=== PATIENT | female | born 1940 | race Caucasian/White ===

== ENCOUNTER 2018-03-10 18:15 | Emergency (ER) | payer MEDICARE, BC ==
[~2018-03-10 18:15] MED LIST: SUCCINYLCHOLINE CHLORIDE INJ 200 MG/10 ML VIAL ONE
--- NOTE | 2018-03-10 18:22 | ER Document Report ---
ED General - General Stated Complaint: VOMITING Time Seen by Provider: 03/10/18 18:22 Notes: Patient presents via ambulance for evaluation of not feeling well. States she has been vomiting all day. Was having some tingling to her hands and feet. Tingling to the face. Patient is accompanied by her ex-. Ex- states that their daughter called him and stated that mom was acting differently and was vomiting a lot at home. Patient denied any chest pain. States that she has vomited several times has some crampy abdominal pain but otherwise denies any other symptoms other than nausea, vomiting and not feeling right. - HPI Onset: This morning Onset/Duration: Gradual Severity: Moderate Pain Level: 2 Associated symptoms: Nausea, Vomiting, Weakness Exacerbated by: Denies - Related Data Allergies/Adverse Reactions: No Known Allergies Allergy (Unverified 03/10/18 21:34) Past Medical History - General Information source: Patient - Social History Smoking Status: Never Smoker Cigarette use (# per day): No Frequency of alcohol use: None Drug Abuse: None Lives with: Alone Family History: Reviewed & Not Pertinent - Medical History Medical History: Other Notes: Hypertension, osteoarthritis Surgical history: Hysterectomy Review of Systems - Review of Systems Constitutional: Malaise, Weakness. denies: Fever EENT: denies: Eye pain, Eye discharge, Blurred vision, Difficulty swallowing, Mouth pain Cardiovascular: denies: Chest pain, Palpitations, Heart racing Respiratory: denies: Cough, Hurts to breathe, Short of breath, Wheezing Gastrointestinal: Nausea, Vomiting, Poor fluid intake. denies: Abdominal pain, Diarrhea Genitourinary: denies: Burning, Dysuria, Discharge Musculoskeletal: denies: Back pain, Gout, Joint pain Skin: denies: Change in color, Dryness, Lesions, Lumps, Rash Hematologic/Lymphatic: denies: Anemia, Blood clots, Easy bleeding, Easy bruising Neurological/Psychological: Weakness, Numbness, Tingling. denies: Seizure, Lost consciousness, Headaches Physical Exam - Vital signs Vitals: Temp Pulse Resp BP Pulse Ox 97.7 F 61 25 H 140/89 H 97 03/10/18 18:45 03/10/18 18:45 03/10/18 18:45 03/10/18 18:45 03/10/18 18:45 Interpretation: Normal - General General appearance: Appears well, Alert - HEENT Head: Normocephalic, Atraumatic Eyes: Normal Pupils: PERRL - Respiratory Respiratory status: No respiratory distress Chest status: Nontender Breath sounds: Normal Chest palpation: Normal - Cardiovascular Rhythm: Regular Heart sounds: Normal auscultation Murmur: No - Abdominal Inspection: Normal Distension: No distension Bowel sounds: Normal Tenderness: Nontender Organomegaly: No organomegaly - Back Back: Normal, Nontender - Extremities General upper extremity: Normal inspection, Nontender, Normal color, Normal ROM , Normal temperature General lower extremity: Normal inspection, Nontender, Normal color, Normal ROM , Normal temperature, Normal weight bearing. No: Carley's sign - Neurological Neuro grossly intact: Yes Cognition: Normal Orientation: AAOx4 [place] Coma Scale Eye Opening: Spontaneous Quique Coma Scale Verbal: Oriented Quique Coma Scale Motor: Obeys Commands Quique Coma Scale Total: 15 Speech: Normal Motor strength normal: LUE, RUE, LLE, RLE Sensory: Normal - Psychological Associated symptoms: Normal affect, Normal mood - Skin Skin Temperature: Warm Skin Moisture: Dry Skin Color: Normal Course - Re-evaluation Re-evalutation: 03/10/18 19:59 Patient was evaluated. Was a and O 4, no acute distress. After leaving the room orders were placed. Was called immediately to go back in the room about 30 minutes later. Patient was unresponsive. Patient was moved immediately to trauma 2. Had a pulse. Was breathing but appeared to be having a seizure. Spontaneously resolved. Patient was noted at that time to have a sodium level of 116. Hypertonic saline was ordered. Patient was intubated. Please see note below. 03/10/18 21:00 Patient intubated. No complications. Repeat sodium performed. Repeat sodium after 1 L of saline still shows hyponatremia at 118. Proceeding with hypertonic and fentanyl given. Increasing sedation. Attempting to transfer at this time. Waiting on read from CT. 03/10/18 21:13 Patient has been accepted at [facility] to the medical intensive care unit. This is a higher level of care and will have multispecialty care there in which we do not have here. I did discuss the case with the hospitalist who did recommend her transfer at this time. is accepting at [facility] 03/10/18 21:14 Laboratory 03/10/18 03/10/1818 18:30 18:30 18:30 WBC 20.1 H RBC 3.67 L Hgb 12.7 Hct 37.0 MCV 101 H MCH 34.5 H MCHC 34.2 RDW 15.3 H Plt Count 313 Total Counted 100 Seg Neutrophils % Not Reportable Seg Neuts % (Manual) 75 Band Neutrophils % 2 L Lymphocytes % Not Reportable Lymphocytes % (Manual) 15 Monocytes % Not Reportable Monocytes % (Manual) 8 Eosinophils % Not Reportable Eosinophils % (Manual) 0 Basophils % Not Reportable Basophils % (Manual) 0 Absolute Neutrophils Not Reportable Abs Neuts (Manual) 15.5 H Absolute Lymphocytes Not Reportable Abs Lymphs (Manual) 3.0 Absolute Monocytes Not Reportable Abs Monocytes (Manual) 1.6 H Absolute Eosinophils Not Reportable Absolute Eos (Manual) 0.0 Absolute Basophils Not Reportable Abs Basophils (Manual) 0.0 Toxic Granulation SLIGHT Platelet Comment ADEQUATE Anisocytosis SLIGHT Carbonic Acid HCO3/H2CO3 Ratio ABG pH ABG pCO2 ABG pO2 ABG HCO3 ABG Total CO2 ABG O2 Saturation ABG Base Excess FiO2 Sodium 116.5 L* Potassium 4.5 Chloride 84 L Carbon Dioxide 22 Anion Gap 11 BUN 20 Creatinine 0.75 Est GFR ( Amer) > 60 Est GFR (Non-Af Amer) > 60 Glucose 113 H Lactic Acid 1.6 Calcium 9.2 Magnesium 1.5 L Total Bilirubin 0.9 Direct Bilirubin 0.3 Neonat Total Bilirubin Not Reportable Neonat Direct Bilirubin Not Reportable Neonat Indirect Bili Not Reportable AST 45 H ALT 19 Alkaline Phosphatase 70 Creatine Kinase 211 H CK-MB (CK-2) Troponin I Total Protein 6.5 Albumin 4.1 Urine Color Urine Appearance Urine pH Ur Specific [place] Urine Protein Urine Glucose (UA) Urine Ketones Urine Blood Urine Nitrite Urine Bilirubin Urine Urobilinogen Ur Leukocyte Esterase Urine WBC (Auto) Urine RBC (Auto) Squamous Epi Cells Auto Urine Mucus (Auto) Urine Ascorbic Acid 03/10/18 03/10/18 03/10/18 18:30 19:40 19:55 WBC RBC Hgb Hct MCV MCH MCHC RDW Plt Count Total Counted Seg Neutrophils % Seg Neuts % (Manual) Band Neutrophils % Lymphocytes % Lymphocytes % (Manual) Monocytes % Monocytes % (Manual) Eosinophils % Eosinophils % (Manual) Basophils % Basophils % (Manual) Absolute Neutrophils Abs Neuts (Manual) Absolute Lymphocytes Abs Lymphs (Manual) Absolute Monocytes Abs Monocytes (Manual) Absolute Eosinophils Absolute Eos (Manual) Absolute Basophils Abs Basophils (Manual) Toxic Granulation Platelet Comment Anisocytosis Carbonic Acid HCO3/H2CO3 Ratio ABG pH ABG pCO2 ABG pO2 ABG HCO3 ABG Total CO2 ABG O2 Saturation ABG Base Excess FiO2 Sodium 118.2 L* Potassium Chloride Carbon Dioxide Anion Gap BUN Creatinine Est GFR ( Amer) Est GFR (Non-Af Amer) Glucose Lactic Acid Calcium Magnesium Total Bilirubin Direct Bilirubin Neonat Total Bilirubin Neonat Direct Bilirubin Neonat Indirect Bili AST ALT Alkaline Phosphatase Creatine Kinase CK-MB (CK-2) 7.68 H Troponin I < 0.012 Total Protein Albumin Urine Color YELLOW Urine Appearance CLEAR Urine pH 7.0 Ur Specific [place] 1.014 Urine Protein NEGATIVE Urine Glucose (UA) 50 H Urine Ketones TRACE H Urine Blood NEGATIVE Urine Nitrite NEGATIVE Urine Bilirubin NEGATIVE Urine Urobilinogen NEGATIVE Ur Leukocyte Esterase NEGATIVE Urine WBC (Auto) 1 Urine RBC (Auto) 3 Squamous Epi Cells Auto <1 Urine Mucus (Auto) RARE Urine Ascorbic Acid 20 H 03/10/18 19:55 WBC RBC Hgb Hct MCV MCH MCHC RDW Plt Count Total Counted Seg Neutrophils % Seg Neuts % (Manual) Band Neutrophils % Lymphocytes % Lymphocytes % (Manual) Monocytes % Monocytes % (Manual) Eosinophils % Eosinophils % (Manual) Basophils % Basophils % (Manual) Absolute Neutrophils Abs Neuts (Manual) Absolute Lymphocytes Abs Lymphs (Manual) Absolute Monocytes Abs Monocytes (Manual) Absolute Eosinophils Absolute Eos (Manual) Absolute Basophils Abs Basophils (Manual) Toxic Granulation Platelet Comment Anisocytosis Carbonic Acid 0.82 L HCO3/H2CO3 Ratio 19:1 ABG pH 7.38 ABG pCO2 27.1 L ABG pO2 394.6 H ABG HCO3 15.7 L ABG Total CO2 16.5 L ABG O2 Saturation 99.8 H ABG Base Excess -8.1 FiO2 100% Sodium Potassium Chloride Carbon Dioxide Anion Gap BUN Creatinine Est GFR ( Amer) Est GFR (Non-Af Amer) Glucose Lactic Acid Calcium Magnesium Total Bilirubin Direct Bilirubin Neonat Total Bilirubin Neonat Direct Bilirubin Neonat Indirect Bili AST ALT Alkaline Phosphatase Creatine Kinase CK-MB (CK-2) Troponin I Total Protein Albumin Urine Color Urine Appearance Urine pH Ur Specific [place] Urine Protein Urine Glucose (UA) Urine Ketones Urine Blood Urine Nitrite Urine Bilirubin Urine Urobilinogen Ur Leukocyte Esterase Urine WBC (Auto) Urine RBC (Auto) Squamous Epi Cells Auto Urine Mucus (Auto) Urine Ascorbic Acid Chest X-Ray 03/10/18 19:00 IMPRESSION: No acute cardiopulmonary disease. Tube placement as described. Head CT 03/10/18 19:00 IMPRESSION: MILD CHRONIC MICROVASCULAR ISCHEMIA. NO ACUTE IMAGING FINDINGS IN THE BRAIN. EVIDENCE OF ACUTE STROKE: NO. 03/10/18 21:28 Patient remained stable on the vent. At this time stable for transport. Awaiting transport at this time. 03/10/18 22:00 now bucking the vent a little bit. Going up on sedation at this time. Second dose for now given. Patient remained stable for transport. - Vital Signs Vital signs: Temp Pulse Resp BP Pulse Ox 64.2 F L 61 14 124/72 100 03/10/18 19:17 03/10/18 18:45 03/10/18 21:34 03/10/18 21:34 03/10/18 21:34 - Laboratory Result Diagrams: 03/10/18 18:30 03/10/18 19:55 Laboratory results interpreted by me: 03/10/18 03/10/18 03/10/18 18:30 18:30 18:30 WBC 20.1 H RBC 3.67 L MCV 101 H MCH 34.5 H RDW 15.3 H Band Neutrophils % 2 L Abs Neuts (Manual) 15.5 H Abs Monocytes (Manual) 1.6 H Carbonic Acid ABG pCO2 ABG pO2 ABG HCO3 ABG Total CO2 ABG O2 Saturation Sodium 116.5 L* Chloride 84 L Glucose 113 H Magnesium 1.5 L AST 45 H Creatine Kinase 211 H CK-MB (CK-2) 7.68 H Urine Glucose (UA) Urine Ketones Urine Ascorbic Acid 03/10/18 03/10/18 03/10/18 19:40 19:55 19:55 WBC RBC MCV MCH RDW Band Neutrophils % Abs Neuts (Manual) Abs Monocytes (Manual) Carbonic Acid 0.82 L ABG pCO2 27.1 L ABG pO2 394.6 H ABG HCO3 15.7 L ABG Total CO2 16.5 L ABG O2 Saturation 99.8 H Sodium 118.2 L* Chloride Glucose Magnesium AST Creatine Kinase CK-MB (CK-2) Urine Glucose (UA) 50 H Urine Ketones TRACE H Urine Ascorbic Acid 20 H - EKG Interpretation by Sd EKG shows normal: Sinus rhythm, [place], Intervals, QRS Complexes, ST-T Waves Procedures - Intubation Orotracheal Airway evaluation: Normal anatomy Mallampati Classification: Class 2 Medications: Etomidate, Succinylcholine, Diprivan, Vecuronium Intubation method: Orotracheal Blade type: Casandra Blade size: 3 Equipment used: Glidescope ETT size: 7.5 ETT secured at: Teeth ETT secured at (cm): 22 Breath Sounds after Intubation: Equal End tidal CO2 confirmed: Yes Ventilator settings: SIMV Post Intubation Xray: Yes Intubation Complications: No complications Critical Care Note - Critical Care Note Total time excluding time spent on procedures (mins): 90 Comments: Coma, airway protection, blood pressure management, neurological compromise, electrolyte abnormalities, consultation with specialists Discharge - Discharge Clinical Impression: Acute hyponatremia, Seizure Condition: Critical Disposition: [facility] Referrals: MARINA ALVAREZ DO [Primary Care Provider] - Follow up as needed
[2018-03-10] MEDS ORDERED: NORMAL SALINE 1000 ML 1,000 ML IV ONE (18:36)
[2018-03-10 18:44] LABS: HEMOGLOBIN 12.7 g/dL (12.0-15.5); MEAN CORPUSCULAR HEMOGLOBIN 34.5 pg (27.0-33.4); MEAN CORPUSCULAR HGB CONC 34.2 g/dL (32.0-36.0); MEAN CORPUSCULAR VOLUME 101 fl (80-97); PLATELET COUNT 313 10^3/uL (150-450); RED BLOOD COUNT 3.67 10^6/uL (3.72-5.28); RED CELL DISTRIBUTION WIDTH 15.3 % (11.5-14.0); WHITE BLOOD COUNT 20.1 10^3/uL (4.0-10.5)
[2018-03-10] MEDS ORDERED: LORAZEPAM INJ 2 MG/1 ML VIAL ONE (18:56)
[2018-03-10 18:58] LABS: ALANINE AMINOTRANSFERASE 19 U/L (9-52); ALBUMIN 4.1 g/dL (3.5-5.0); ALKALINE PHOSPHATASE 70 U/L (38-126); ANION GAP 11 (5-19); ASPARTATE AMINO TRANSFERASE 45 U/L (14-36); BILIRUBIN,DIRECT 0.3 mg/dL (0.0-0.4); BILIRUBIN,TOTAL 0.9 mg/dL (0.2-1.3); BLOOD UREA NITROGEN 20 mg/dL (7-20); CALCIUM 9.2 mg/dL (8.4-10.2); CARBON DIOXIDE 22 mmol/L (22-30); CHLORIDE 84 mmol/L (98-107); CREATINE KINASE 211 U/L (30-135); GLUCOSE 113 mg/dL (75-110); POTASSIUM 4.5 mmol/L (3.6-5.0); TOTAL PROTEIN 6.5 g/dL (6.3-8.2)
[2018-03-10 19:00] LABS: ABSOLUTE MONOCYTES # (MANUAL) 1.6 10^3/uL (0.1-1.4); ABSOLUTE NEUTROPHILS# (MANUAL) 15.5 10^3/uL (1.7-8.2); BAND NEUTROPHILS % (MANUAL) 2 % (3-5); BASOPHILS % (MANUAL) 0 % (0-2); EOSINOPHILS % (MANUAL) 0 % (0-6); LYMPHOCYTES % (MANUAL) 15 % (13-45); MONOCYTES % (MANUAL) 8 % (3-13); SEGMENTED NEUTROPHILS % (MAN) 75 % (42-78); TOTAL CELLS COUNTED 100
[2018-03-10 19:01] LABS: ANISOCYTOSIS SLIGHT; PLATELET COMMENT ADEQUATE; TOXIC GRANULATION SLIGHT
[2018-03-10 19:03] LABS: SODIUM 116.5 mmol/L (137-145)
[2018-03-10] MEDS ORDERED: ETOMIDATE INJ/PF 20 MG/10 ML SDV IV ONE (19:08)
[2018-03-10 19:09] LABS: CREATINE KINASE MB 7.68 ng/mL (<4.55)
[2018-03-10] MEDS ORDERED: SODIUM CHLORIDE 3% 500 ML IV ONE ×2 (19:11→20:55)
[2018-03-10 19:13] LABS: TROPONIN I < 0.012 ng/mL
[2018-03-10] MEDS ORDERED: PROPOFOL 100 ML IV ONE (19:14)
[2018-03-10] MEDS ORDERED: VECURONIUM BROMIDE INJ 10 MG VIAL IV ONE ×2 (19:31→21:48)
[2018-03-10 20:01] LABS: APPEARANCE,URINE CLEAR; BILIRUBIN,URINE NEGATIVE (NEGATIVE); COLOR,URINE YELLOW; GLUCOSE, URINE 50 mg/dL (NEGATIVE); KETONES,URINE TRACE mg/dL (NEGATIVE); LEUKOCYTE ESTERASE,URINE NEGATIVE (NEGATIVE); NITRITE,URINE NEGATIVE (NEGATIVE); PROTEIN,URINE NEGATIVE (NEGATIVE); URINE SPECIFIC GRAVITY 1.014; UROBILINOGEN,URINE NEGATIVE mg/dL (<2.0)
[2018-03-10 20:13] LABS: ARTERIAL BLOOD BASE EXCESS -8.1 mmol/L; ARTERIAL BLOOD H2CO3 0.82 mmol/L (1.05-1.35); ARTERIAL BLOOD HCO3 15.7 mmol/L (20-26); ARTERIAL BLOOD O2 SATURATION 99.8 % (94-98); ARTERIAL BLOOD PCO2 27.1 mmHg (35-45); ARTERIAL BLOOD PH 7.38 (7.35-7.45); ARTERIAL BLOOD PO2 394.6 mmHg (80-100); ARTERIAL BLOOD TOTAL CO2 16.5 mmol/L (21-25)
--- NOTE | 2018-03-10 20:13 | RADIOLOGY REPORT (SQ) ---
EXAM DESCRIPTION: CHEST SINGLE VIEW COMPLETED DATE/TIME: 03/10/2018 8:03 pm REASON FOR STUDY: sob/ NG/ETT PLACEMENT COMPARISON: None. EXAM PARAMETERS: NUMBER OF VIEWS: One view. TECHNIQUE: Single frontal radiographic view of the chest acquired. RADIATION DOSE: NA LIMITATIONS: None. FINDINGS: LUNGS AND PLEURA: No infiltrate or effusion. No mass. MEDIASTINUM AND HILAR STRUCTURES: No masses. Contour normal. HEART AND VASCULAR STRUCTURES: Heart normal in size. Normal vasculature. BONES: No acute findings. HARDWARE: An endotracheal tube has its tip 5 cm above the kylee. An NG tube extends to the stomach. OTHER: No other significant finding. IMPRESSION: No acute cardiopulmonary disease. Tube placement as described. TECHNICAL DOCUMENTATION: JOB ID: [id number] [employer]- All Rights Reserved Reading location - IP/workstation name: [email or web address]
[2018-03-10 20:14] LABS: ARTERIAL BLOOD FIO2 100%
[2018-03-10] MEDS ORDERED: SUCCINYLCHOLINE CHLORIDE INJ 200 MG/10 ML VIAL IV ONE (20:38)
[2018-03-10] MEDS ORDERED: FENTANYL CITRATE INJ/PF 100 MCG/2 ML AMPUL IV ONE ×2 (21:00→21:47)
--- NOTE | 2018-03-10 21:00 | RADIOLOGY REPORT (SQ) ---
EXAM DESCRIPTION: CT HEAD WITHOUT COMPLETED DATE/TIME: 03/10/2018 8:23 pm REASON FOR STUDY: altered mental status COMPARISON: None. TECHNIQUE: Axial images acquired through the brain without intravenous contrast. Images reviewed wi th bone, brain and subdural windows. Additional sagittal and coronal reconstructions were generated. Images stored on PACS. All CT scanners at this facility use dose modulation, iterative reconstruction, and/or weight based d osing when appropriate to reduce radiation dose to as low as reasonably achievable (ALARA). [facility]: Dose Right [facility]: CareDose [facility]: Dose Right [facility]: Teradose 4D [facility]: Smart Synack RADIATION DOSE: CT Rad equipment meets quality standard of care and radiation dose reduction techniq ues were employed. CTDIvol: 53.2 mGy. DLP: 1017 mGy-cm. mGy. LIMITATIONS: None. FINDINGS: VENTRICLES: Normal size and contour. CEREBRUM: No masses. No hemorrhage. No midline shift. No evidence for acute infarction. Few scatte red areas of low density in the white matter most likely chronic small vessel ischemic changes. CEREBELLUM: No masses. No hemorrhage. No alteration of density. No evidence for acute infarction. EXTRAAXIAL SPACES: No fluid collections. No masses. ORBITS AND GLOBE: No intra- or extraconal masses. Normal contour of globe without masses. CALVARIUM: No fracture. PARANASAL SINUSES: No fluid or mucosal thickening. SOFT TISSUES: No mass or hematoma. OTHER: An endotracheal tube is present. IMPRESSION: MILD CHRONIC MICROVASCULAR ISCHEMIA. NO ACUTE IMAGING FINDINGS IN THE BRAIN. EVIDENCE OF ACUTE STROKE: NO. COMMENT: Quality ID # [id number]: Final reports with documentation of one or more dose reduction techniques (e.g., Automated exposure control, adjustment of the mA and/or kV according to patient size, use of iterative reconstruction technique) TECHNICAL DOCUMENTATION: JOB ID: [id number] [employer]- All Rights Reserved Reading location - IP/workstation name: [email or web address]
--- NOTE | 2018-03-10 22:32 | EKG REPORT ---
SEVERITY:- ABNORMAL ECG - SINUS RHYTHM ATRIAL PREMATURE COMPLEX ABNRM R PROG, CONSIDER ASMI OR LEAD PLACEMENT CONSIDER INFERIOR AL AGE OLD : Confirmed by: Mani Spencer 10-Mar-2018 22:31:56
[2018-03-10 22:33] VITALS: BP 94/58
== END 2018-03-10 22:50 | disposition short-term general hospital (02) ==
LOC: ER 18:15
DX: E87.1 Hypo-osmolality and hyponatremia (principal); R56.9 Unspecified convulsions; R11.2 Nausea with vomiting, unspecified; R20.2 Paresthesia of skin; R53.1 Weakness; R53.81 Other malaise; R20.0 Anesthesia of skin; I67.82 Cerebral ischemia
CPT/HCPCS: 93005; 99291; 99292; 96361; 51702; 96374; 36415; 87040; 82553; 82803; 82550; 83735; 84295; 85025; 80053; 81001; 84484; 83605; 71045; 70450; 93010; 31500; J3010; J2704; J3490 ×2; J2060; J0330; J7030

== ENCOUNTER 2019-06-18 13:42 | Inpatient (IN) | payer MEDICARE, BC ==
[2019-06-18 14:15] LABS: ABSOLUTE BASOPHILS # (AUTO) 0.1 10^3/uL (0.0-0.2); ABSOLUTE EOSINOPHILS # (AUTO) 0.1 10^3/uL (0.0-0.6); ABSOLUTE LYMPHOCYTES (AUTO) 2.4 10^3/uL (0.5-4.7); ABSOLUTE MONOCYTES (AUTO) 0.9 10^3/uL (0.1-1.4); ABSOLUTE NEUT (AUTO) 6.8 10^3/uL (1.7-8.2); BASOPHILS % (AUTO) 1.1 % (0-2); EOSINOPHILS % (AUTO) 0.6 % (0-6); HEMATOCRIT 35.7 % (36.0-47.0); HEMOGLOBIN 12.6 g/dL (12.0-15.5); LYMPHOCYTES % (AUTO) 23.7 % (13-45); MEAN CORPUSCULAR HEMOGLOBIN 36.5 pg (27.0-33.4); MEAN CORPUSCULAR HGB CONC 35.4 g/dL (32.0-36.0); MEAN CORPUSCULAR VOLUME 103 fl (80-97); MONOCYTES % (AUTO) 8.3 % (3-13); PLATELET COUNT 283 10^3/uL (150-450); RED BLOOD COUNT 3.46 10^6/uL (3.72-5.28); RED CELL DISTRIBUTION WIDTH 16.1 % (11.5-14.0); SEGMENTED NEUTROPHILS % (AUTO) 66.3 % (42-78); TOTAL CELLS COUNTED % (AUTO) 100 %; WHITE BLOOD COUNT 10.3 10^3/uL (4.0-10.5)
[2019-06-18 14:39] LABS: ALBUMIN 4.5 g/dL (3.5-5.0); ALKALINE PHOSPHATASE 70 U/L (38-126); ANION GAP 12 (5-19); ASPARTATE AMINO TRANSFERASE 30 U/L (14-36); BILIRUBIN,DIRECT 0.3 mg/dL (0.0-0.4); BILIRUBIN,TOTAL 0.8 mg/dL (0.2-1.3); BLOOD UREA NITROGEN 22 mg/dL (7-20); CARBON DIOXIDE 23 mmol/L (22-30); CHLORIDE 86 mmol/L (98-107); CREATINE KINASE 122 U/L (30-135); GLUCOSE 101 mg/dL (75-110); POTASSIUM 4.3 mmol/L (3.6-5.0); TOTAL PROTEIN 7.1 g/dL (6.3-8.2)
[2019-06-18] MEDS ORDERED: DIPHENHYDRAMINE HCL 50 MG/ML VIAL IV ONE (14:45)
[2019-06-18] MEDS ORDERED: NORMAL SALINE 1000 ML 1,000 ML IV ONE (14:45)
[2019-06-18 14:48] LABS: CREATINE KINASE MB 1.44 ng/mL (<4.55); TROPONIN I < 0.012 ng/mL
--- NOTE | 2019-06-18 15:00 | ER Document Report ---
ED General - General Chief Complaint: Weakness Stated Complaint: WEAKNESS Time Seen by Provider: 06/18/19 14:26 Primary Care Provider: MARINA ALVAREZ DO [Primary Care Provider] - Follow up as needed - [facility] Notes: Patient is a 78-year-old female that presents to the emergency department for chief complaint of headache. Patient denies history of headaches in the past. She states yesterday evening she started to have a bilateral frontal headache that has gradually gotten worse since onset yesterday. Headache has been constant without resolution. She did take a dose of Tylenol yesterday evening without any help. She reports no photophobia or phonophobia. Her headache is worse when she changes positions. She reports some blurry vision with the headache as well. Patient also reports history of neuropathy and states that 4 AM she had an episode of burning pain in her hands and feet which has since resolved. The burning sensation is not new for her and was similar to previous episodes of her neuropathy but slightly more severe in nature. Patient also reports that she is in the process of doing a bowel prep for colonoscopy and has been taking Colace. She reports epigastric abdominal cramping last night and frequent bowel movements. Patient's family does note a history of hyponatremia with seizures about 1 year ago. Past Medical History: Hyponatremia, rheumatoid arthritis, neuropathy Past Surgical History: Reviewed in chart Social History: Lives at home independently, denies alcohol and tobacco use Family History: Reviewed and noncontributory for presenting illness Allergies: Reviewed, see documented allergy list. REVIEW OF SYSTEMS: CONSTITUTIONAL : No fever No chills No diaphoresis No recent illness EENT: No vision changes No congestion No sore throat CARDIOVASCULAR: No chest pain No palpitations RESPIRATORY: No shortness of breath No cough No difficulty breathing GASTROINTESTINAL: abdominal pain nausea No vomiting No diarrhea GENITOURINARY: No dysuria No hematuria No difficulty urinating MUSCULOSKELETAL: No back pain No leg pain No arm pain SKIN: No rashes No lesions LYMPHATIC: No swollen, enlarged glands. NEUROLOGICAL: No lightheadedness headache No weakness paresthesias PSYCHIATRIC: No anxiety No depression PHYSICAL EXAMINATION: Vital signs reviewed, nursing noted reviewed. GENERAL: Well-appearing, well-nourished and in no acute distress. HEAD: Atraumatic, normocephalic. EYES: Eyes appear normal, extraocular movements intact, sclera anicteric, conjunctiva are normal. ENT: nares patent, oropharynx clear without exudates. Moist mucous membranes. NECK: Normal range of motion, supple without lymphadenopathy LUNGS: Breath sounds clear to auscultation bilaterally and equal. No wheezes r ales or rhonchi. HEART: Regular rate and rhythm without murmurs ABDOMEN: Soft, nontender, normoactive bowel sounds. No rebound, guarding, or rigidity. No masses appreciated. EXTREMITIES: Nontender, good range of motion, no pitting or edema. NEUROLOGICAL: No focal neurological deficits. Moves all extremities spontaneously Motor and sensory grossly intact on exam. PSYCH: Normal mood, normal affect. SKIN: Warm, Dry, normal turgor, no rashes or lesions noted on exposed skin - Related Data Allergies/Adverse Reactions: No Known Allergies Allergy (Unverified 03/10/18 21:34) Past Medical History - Social History Smoking Status: Former Smoker Frequency of alcohol use: None Drug Abuse: None Family History: Reviewed & Not Pertinent Patient has suicidal ideation: No Patient has homicidal ideation: No Renal/ Medical History: Denies: Hx Peritoneal Dialysis Physical Exam - Vital signs Vitals: Temp Pulse Resp BP 97.8 F 58 L 20 177/83 H 06/18/19 13:59 06/18/19 13:59 06/18/19 13:59 06/18/19 13:59 Course - Re-evaluation Re-evalutation: 06/18/19 15:00 Vitals reviewed. Nursing notes reviewed. Patient is well-appearing with no focal neurologic deficits. Seizure precautions were added for concern of her history of hyponatremia with seizures. 06/18/19 15:35 Patient reevaluated after IV fluids were started. She reports some improvement of her headache. Patient was given Tylenol after CT brain showed no acute intracranial hemorrhage. Her lab work does show hyponatremia. Patient should be blood work from last week which showed a sodium of 126, she is 121 today. The remainder of her workup is unremarkable. Patient will be admitted for further care. Case discussed with Dr. Perera who accepted admission. Patient has not had seizure activity in the ED. Laboratory 06/18/19 06/18/19 06/18/19 13:58 13:58 13:58 WBC 10.3 RBC 3.46 L Hgb 12.6 Hct 35.7 L MCV 103 H MCH 36.5 H MCHC 35.4 RDW 16.1 H Plt Count 283 Seg Neutrophils % 66.3 Lymphocytes % 23.7 Monocytes % 8.3 Eosinophils % 0.6 Basophils % 1.1 Absolute Neutrophils 6.8 Absolute Lymphocytes 2.4 Absolute Monocytes 0.9 Absolute Eosinophils 0.1 Absolute Basophils 0.1 Sodium 121.2 L Potassium 4.3 Chloride 86 L Carbon Dioxide 23 Anion Gap 12 BUN 22 H Creatinine 1.09 Est GFR ( Amer) 59 L Est GFR (Non-Af Amer) 49 L Glucose 101 Calcium 10.0 Total Bilirubin 0.8 Direct Bilirubin 0.3 Neonat Total Bilirubin Not Reportable Neonat Direct Bilirubin Not Reportable Neonat Indirect Bili Not Reportable AST 30 ALT 10 Alkaline Phosphatase 70 Creatine Kinase 122 CK-MB (CK-2) 1.44 Troponin I < 0.012 Total Protein 7.1 Albumin 4.5 Urine Color Urine Appearance Urine pH Ur Specific [place] Urine Protein Urine Glucose (UA) Urine Ketones Urine Blood Urine Nitrite Urine Bilirubin Urine Urobilinogen Ur Leukocyte Esterase Urine WBC (Auto) Urine RBC (Auto) Urine Mucus (Auto) Urine Ascorbic Acid 06/18/19 14:55 WBC RBC Hgb Hct MCV MCH MCHC RDW Plt Count Seg Neutrophils % Lymphocytes % Monocytes % Eosinophils % Basophils % Absolute Neutrophils Absolute Lymphocytes Absolute Monocytes Absolute Eosinophils Absolute Basophils Sodium Potassium Chloride Carbon Dioxide Anion Gap BUN Creatinine Est GFR ( Amer) Est GFR (Non-Af Amer) Glucose Calcium Total Bilirubin Direct Bilirubin Neonat Total Bilirubin Neonat Direct Bilirubin Neonat Indirect Bili AST ALT Alkaline Phosphatase Creatine Kinase CK-MB (CK-2) Troponin I Total Protein Albumin Urine Color STRAW Urine Appearance CLEAR Urine pH 8.0 Ur Specific [place] 1.006 Urine Protein NEGATIVE Urine Glucose (UA) NEGATIVE Urine Ketones NEGATIVE Urine Blood NEGATIVE Urine Nitrite NEGATIVE Urine Bilirubin NEGATIVE Urine Urobilinogen NEGATIVE Ur Leukocyte Esterase NEGATIVE Urine WBC (Auto) 1 Urine RBC (Auto) 2 Urine Mucus (Auto) RARE Urine Ascorbic Acid NEGATIVE Chest X-Ray 06/18/19 14:30 IMPRESSION: NO ACUTE RADIOGRAPHIC FINDING IN THE CHEST. Head CT 06/18/19 14:30 IMPRESSION: No acute intracranial pathology. EVIDENCE OF ACUTE STROKE: NO. - Vital Signs Vital signs: Temp Pulse Resp BP Pulse Ox 97.8 F 58 L 20 177/83 H 06/18/19 13:59 06/18/19 13:59 06/18/19 13:59 06/18/19 13:59 - Laboratory Result Diagrams: 06/18/19 13:58 06/18/19 13:58 Laboratory results interpreted by me: 06/18/19 06/18/19 13:58 13:58 RBC 3.46 L Hct 35.7 L MCV 103 H MCH 36.5 H RDW 16.1 H Sodium 121.2 L Chloride 86 L BUN 22 H Est GFR ( Amer) 59 L Est GFR (Non-Af Amer) 49 L - EKG Interpretation by Me Additional EKG results interpreted by me: 06/18/19 15:05 Interpreted by myself [id number]: Normal sinus rhythm, rate 60, normal axis, no STEMI Discharge - Discharge Clinical Impression: Hyponatremia Headache Qualifiers: Headache type: unspecified Headache chronicity pattern: acute headache Intractability: not intractable Qualified Code(s): R51 - Headache Condition: Stable Disposition: ADMITTED INPATIENT Admitting Provider: Trever (Hospitalist) Unit Admitted: [facility]U Referrals: MARINA ALVAREZ DO [Primary Care Provider] - Follow up as needed
--- NOTE | 2019-06-18 15:17 | RADIOLOGY REPORT (SQ) ---
EXAM DESCRIPTION: CHEST SINGLE VIEW COMPLETED DATE/TIME: 06/18/2019 2:56 pm REASON FOR STUDY: numbness COMPARISON: None. EXAM PARAMETERS: NUMBER OF VIEWS: One view. TECHNIQUE: Single frontal radiographic view of the chest acquired. RADIATION DOSE: NA LIMITATIONS: None. FINDINGS: LUNGS AND PLEURA: No opacities, masses or pneumothorax. No pleural effusion. MEDIASTINUM AND HILAR STRUCTURES: No masses. Contour normal. HEART AND VASCULAR STRUCTURES: Heart normal in size. Normal vasculature. BONES: No acute findings. HARDWARE: None in the chest. OTHER: No other significant finding. IMPRESSION: NO ACUTE RADIOGRAPHIC FINDING IN THE CHEST. TECHNICAL DOCUMENTATION: JOB ID: [id number] [employer]- All Rights Reserved Reading location - IP/workstation name: [email or web address]
[2019-06-18 15:20] LABS: APPEARANCE,URINE CLEAR; BILIRUBIN,URINE NEGATIVE (NEGATIVE); COLOR,URINE STRAW; GLUCOSE, URINE NEGATIVE (NEGATIVE); KETONES,URINE NEGATIVE (NEGATIVE); LEUKOCYTE ESTERASE,URINE NEGATIVE (NEGATIVE); NITRITE,URINE NEGATIVE (NEGATIVE); PROTEIN,URINE NEGATIVE (NEGATIVE); URINE SPECIFIC GRAVITY 1.006; UROBILINOGEN,URINE NEGATIVE mg/dL (<2.0)
--- NOTE | 2019-06-18 15:23 | RADIOLOGY REPORT (SQ) ---
EXAM DESCRIPTION: CT HEAD WITHOUT COMPLETED DATE/TIME: 06/18/2019 3:08 pm REASON FOR STUDY: numbness COMPARISON: None. TECHNIQUE: Axial images acquired through the brain without intravenous contrast. Images reviewed wi th bone, brain and subdural windows. Additional sagittal and coronal reconstructions were generated. Images stored on PACS. All CT scanners at this facility use dose modulation, iterative reconstruction, and/or weight based d osing when appropriate to reduce radiation dose to as low as reasonably achievable (ALARA). [facility]: Dose Right [facility]: CareDose [facility]: Dose Right [facility]: Teradose 4D [facility]: Bubble Gum Interactive RADIATION DOSE: CT Rad equipment meets quality standard of care and radiation dose reduction techniq ues were employed. CTDIvol: 53.2 mGy. DLP: 1017 mGy-cm. mGy. LIMITATIONS: None. FINDINGS: VENTRICLES: Normal size and contour. CEREBRUM: No masses. No hemorrhage. No midline shift. No evidence for acute infarction. Normal gra y/white matter differentiation. No areas of low density in the white matter. CEREBELLUM: No masses. No hemorrhage. No alteration of density. No evidence for acute infarction. EXTRAAXIAL SPACES: No fluid collections. No masses. ORBITS AND GLOBE: No intra- or extraconal masses. Normal contour of globe without masses. CALVARIUM: No fracture. PARANASAL SINUSES: No fluid or mucosal thickening. SOFT TISSUES: No mass or hematoma. OTHER: No other significant finding. IMPRESSION: No acute intracranial pathology. EVIDENCE OF ACUTE STROKE: NO. COMMENT: Quality ID # [id number]: Final reports with documentation of one or more dose reduction techniques (e.g., Automated exposure control, adjustment of the mA and/or kV according to patient size, use of iterative reconstruction technique) TECHNICAL DOCUMENTATION: JOB ID: [id number] [employer]- All Rights Reserved Reading location - IP/workstation name: [email or web address]
[2019-06-18] MEDS ORDERED: ACETAMINOPHEN 325 MG TABLET PO ONE (15:30)
[2019-06-18] MEDS ORDERED: METOCLOPRAMIDE HCL INJ/PF 10 MG/2 ML SDV IV ONE (15:30)
[2019-06-18] MEDS ORDERED: ACETAMINOPHEN 325 MG TABLET PO PRN (16:11)
[2019-06-18] MEDS ORDERED: ONDANSETRON HCL INJ/PF 4 MG/2 ML SDV IV PRN (16:11)
[2019-06-18] MEDS ORDERED: NORMAL SALINE 1000 ML 1,000 ML IV PRN (16:11)
[2019-06-18] MEDS ORDERED: MORPHINE SULFATE 10 MG/ML INJ IV PRN (16:25)
--- NOTE | 2019-06-18 16:39 | PDOC H&P ---
History of Present Illness Admission Date/PCP: 06/18/19 16:06 MARINA ALVAREZ DO Patient complains of: 78-year-old female came in with severe headaches and weakness from last night. History of Present Illness: JUAN ANTONIO JONES is a 78 year old female history of rheumatoid arthritis, hypertension, gastric further reflux disease, hypothyroidism, history of hypona tremia leading to seizures came to the emergency room with complaints of severe headaches associated weakness from last night. Patient has lab test was done outside facility and serum sodium is 126 at the time and in the ER it is 121. She got 1 L of normal saline emergency room. At the time of my examination patient denies any confusion. Her main complaint is she is feeling nauseated and severe headaches. Patient agreed to stay in this hospital for management of hyponatremia. I explained to her in detail that hyponatremia is a very complicated and it has to be managed with extreme care and I suggested it is better to be transferred to the [facility] or [place] but the patient declined prefers to stay here in this hospital. I spoke to the otr refrigerated cdl truck driver Dr. Myers she is going to see the patient in the emergency room. Past Medical History Cardiac Medical History: Reports: Hypertension Endocrine Medical History: Reports: Hypothyroidism GI Medical History: Reports: Gastroesophageal Reflux Disease Musculoskeltal Medical History: Reports: Arthritis Psychiatric Medical History: Reports: None Past Surgical History Past Surgical History: Reports: None Social History Information Source: Patient Smoking Status: Former Smoker Frequency of Alcohol Use: None Hx Recreational Drug Use: No Hx Prescription Drug Abuse: No - Advance Directive Resuscitation Status: Full Code Family History Family History: Reviewed & Not Pertinent Family History: No significant family history. Parental Family History Reviewed: Yes Children Family History Reviewed: Yes Sibling(s) Family History Reviewed.: Yes Medication/Allergy Allergies/Adverse Reactions: No Known Allergies Allergy (Unverified 03/10/18 21:34) Review of Systems Constitutional: PRESENT: chills, fatigue, headache(s), weakness. ABSENT: fe patrick(s) Eyes: ABSENT: visual disturbances Nose, Mouth, and Throat: ABSENT: sore throat Cardiovascular: ABSENT: edema, orthropnea Respiratory: ABSENT: cough, dyspnea Gastrointestinal: PRESENT: nausea. ABSENT: vomiting Genitourinary: ABSENT: dysuria, hematuria Musculoskeletal: ABSENT: joint swelling Integumentary: ABSENT: rash, wounds Neurological: ABSENT: weakness Psychiatric: PRESENT: anxiety Endocrine: PRESENT: cold intolerance Physical Exam Vital Signs: Temp Pulse Resp BP Pulse Ox 97.8 F 58 L 20 177/83 H 06/18/19 13:59 06/18/19 13:59 06/18/19 13:59 06/18/19 13:59 Intake & Output 06/17/19 06/18/19 06/19/19 06:59 06:59 06:59 Intake Total 1000 Balance 1000 Weight 69.8 kg General appearance: PRESENT: cooperative, mild distress Head exam: PRESENT: atraumatic Eye exam: PRESENT: PERRLA Mouth exam: PRESENT: moist, tongue midline Teeth exam: PRESENT: poor dentation Neck exam: PRESENT: carotid bruit Respiratory exam: PRESENT: clear to auscultation brian. ABSENT: rales, rhonchi, wheezes Cardiovascular exam: PRESENT: bradycardia Pulses: PRESENT: normal dorsalis pedis pul GI/Abdominal exam: PRESENT: normal bowel sounds, soft. ABSENT: distended, guarding, mass, organolmegaly, rebound, tenderness Rectal exam: PRESENT: deferred Extremities exam: PRESENT: full ROM. ABSENT: calf tenderness, clubbing, pedal edema Neurological exam: PRESENT: alert, awake, oriented to person, oriented to place, oriented to time, oriented to situation, CN II-XII grossly intact. ABSENT: motor sensory deficit Psychiatric exam: PRESENT: anxious Results Laboratory Results: 06/18/19 13:58 06/18/19 13:58 06/18/19 06/18/19 06/18/19 13:58 13:58 14:55 WBC 10.3 RBC 3.46 L Hgb 12.6 Hct 35.7 L MCV 103 H MCH 36.5 H MCHC 35.4 RDW 16.1 H Plt Count 283 Seg Neutrophils % 66.3 Lymphocytes % 23.7 Monocytes % 8.3 Eosinophils % 0.6 Basophils % 1.1 Absolute Neutrophils 6.8 Absolute Lymphocytes 2.4 Absolute Monocytes 0.9 Absolute Eosinophils 0.1 Absolute Basophils 0.1 Sodium 121.2 L Potassium 4.3 Chloride 86 L Carbon Dioxide 23 Anion Gap 12 BUN 22 H Creatinine 1.09 Est GFR ( Amer) 59 L Est GFR (Non-Af Amer) 49 L Glucose 101 Calcium 10.0 Total Bilirubin 0.8 AST 30 Alkaline Phosphatase 70 Total Protein 7.1 Albumin 4.5 Urine Color STRAW Urine Appearance CLEAR Urine pH 8.0 Ur Specific [place] 1.006 Urine Protein NEGATIVE Urine Glucose (UA) NEGATIVE Urine Ketones NEGATIVE Urine Blood NEGATIVE Urine Nitrite NEGATIVE Ur Leukocyte Esterase NEGATIVE Urine WBC (Auto) 1 Urine RBC (Auto) 2 06/18/19 06/18/19 13:58 13:58 Creatine Kinase 122 CK-MB (CK-2) 1.44 Troponin I < 0.012 Impressions: Chest X-Ray 06/18/19 14:30 IMPRESSION: NO ACUTE RADIOGRAPHIC FINDING IN THE CHEST. Head CT 06/18/19 14:30 IMPRESSION: No acute intracranial pathology. EVIDENCE OF ACUTE STROKE: NO. Assessment and Plan - Diagnosis (1) Hyponatremia Is this a current diagnosis for this admission?: Yes Plan: 06/18/2019-patient came in with serum sodium of 121 with complaints of headaches and weakness. Plan to put her in IMCU. She received 1 L of normal saline in the emergency room and to continue normal saline at 100 cc/h plan to check the serum sodium tonight. And plan to check the basic metabolic profile every 6 hours. Urine electrolytes were requested urine osmolality was requested. CT chest was requested to rule out Antoinette malignancy. Nephrology consult was requested. Patient is on hydrochlorothiazide at home plan is to hold hydrochlorothiazide. Aspiration fall seizure precautions are requested. To start her on Ativan 1 mg IV every 6 for PRN to prevent seizure activity. DVT prophylaxis DVT prophylaxis was initiated. Started on morphine 2 mg IV for the pains and Zofran 4 mg IV every 6 as needed for nausea. Goal is to gradually increase the serum sodium level from 121 to 130 in the next 24 hours. (2) Headache Qualifiers: Headache type: unspecified Headache chronicity pattern: acute headache Intractability: not intractable Qualified Code(s): R51 - Headache Is this a current diagnosis for this admission?: Yes Plan: 06/18/2019-patient came in with severe headaches CT head was negative for acute pathology headaches may be secondary to hyponatremia. Neurochecks are requested every 4 hours. Aspiration fall seizure precautions are requested. (3) Hypothyroidism Is this a current diagnosis for this admission?: No Plan: 06/18/2019-patient has history of hypothyroidism plan is to check TSH level tomorrow and to resume levothyroxine. (4) Rheumatoid arthritis Is this a current diagnosis for this admission?: No Plan: 06/18/2019-patient given the history of rheumatoid arthritis she is taking prednisone and she also told me she is not taking methotrexate for the last 1 week. (5) HTN (hypertension) Is this a current diagnosis for this admission?: No Plan: 06/18/2019-patient has history of essential hypertension on lisinopril and hydrochlorothiazide plan is to hold hydrochlorothiazide from now because of the hyponatremia. - Time Time Spent with patient: 25-34 minutes Medications reviewed and adjusted accordingly: Yes Anticipated discharge: Home
[2019-06-18] MEDS ORDERED: (PENDING PHARMACY ID) (Simvastatin [Simvastatin] 20 MG) PO SCH (18:00)
--- NOTE | 2019-06-18 18:21 | PDOC CONSULTATION ---
Consultation Consult Date: 06/18/19 Provider Consulted: CATINA MULLEN Consult reason:: I was asked to see the patient because of hyponatremia. History of Present Illness Admission Date/PCP: 06/18/19 16:06 MARINA ALVAREZ DO History of Present Illness: JUAN ANTONIO JONES is a 78 year old female with history of rheumatoid arthritis, hypertension, hypothyroidism, chronic kidney disease stage III and previous episode of hyponatremia causing seizures who came in because of headache and weakness. Patient states that since last night she started experiencing this bad headache associated with dizziness, nausea and weakness. She called a friend who called 911 and she was brought to the emergency room. She denies any confusion or disorientation. In the emergency room she was found to have a s odium of 121.2. Patient has a previous history of hyponatremia which led to seizure last March 2018. At that time she had a sodium as low as 116 and had a seizure so she needed to be transferred to [facility]. She related that during that time she was taking a medication given by the urologist for her bladder which starts with D which I assume could be possibly desmopressin. This was obviously discontinued. In June 10, 2019 she had a blood work from her site controller, Dr. Snyder and her sodium level at that time was 126, BUN was 21, creatinine of 1.1 with EGFR of 51. This time she has been on hydrochlorothiazide since April 18, 2018 taking half of a 25 mg daily. She says she drinks 2-3 bottles of water with any fiber. Her diet consists of foods, yogurt, vegetables, egg whites and very minimal meat including fish and chicken. She avoids salt because of her blood pressure. When she came in her blood pressure is elevated. Currently she denies any confusion or diso rientation and has been communicating normally. She mentioned that her methotrexate was discontinued last week. Her chest x-ray is negative. Her head CT is also negative in the emergency room. Urine osmolality is 206. Past Medical History Cardiac Medical History: Reports: Hyperlipidemia, Hypertension-primary Endocrine Medical History: Reports: Hypothyroidism Renal/ Medical History: Reports: Chronic Kidney Disease Stage III, Hyponatremia GI Medical History: Reports: Gastroesophageal Reflux Disease Musculoskeltal Medical History: Reports: Rheumatoid Arthritis Past Surgical History Past Surgical History: Reports: None Social History Information Source: Patient, [facility] Records Smoking Status: Former Smoker Frequency of Alcohol Use: None Hx Recreational Drug Use: No Hx Prescription Drug Abuse: No - Advance Directive Resuscitation Status: Full Code Family History Family History: No significant family history per patient Parental Family History Reviewed: Yes Children Family History Reviewed: Yes Sibling(s) Family History Reviewed.: Yes Medication/Allergy Home Medications: Allopurinol [Zyloprim 100 mg Tablet] 200 mg PO DAILY 06/18/19 Aspirin [Adult Low Dose Aspirin EC] 81 mg PO QPM 06/18/19 Calcium Carbonate/Vitamin D3 [Calcium 600 + Vit D Tablet] 1 each PO DAILY 06/18/19 Carvedilol [Coreg 12.5 mg Tablet] 25 mg PO BID 06/18/19 Cyanocobalamin (Vitamin B-12) [B-12] 5,000 mcg PO DAILY 06/18/19 Docusate Sodium [Colace 100 mg Capsule] 100 mg PO BID 06/18/19 Enalapril Maleate [Vasotec 20 mg Tablet] 40 mg PO BID 06/18/19 Esomeprazole Magnesium [Nexium] 20 mg PO QAM 06/18/19 Eszopiclone [Lunesta] 3 mg PO QPMP PRN 06/18/19 Flaxseed Oil [Flaxseed] 1,000 mg PO DAILY 06/18/19 Folic Acid [Folvite 1 mg Tablet] 1 mg PO QAM 06/18/19 Gabapentin [Neurontin 100 mg Capsule] 300 mg PO QHS 06/18/19 Hydrochlorothiazide [Hydrodiuril 25 mg Tablet] 12.5 mg PO QAM 06/18/19 Inulin/Chromium Picolinate [Fiber Gummies] 2 ea PO DAILY 06/18/19 Levothyroxine Sodium 75 mcg PO QAM 06/18/19 Meclizine HCl [Motion Relief] 25 mg PO DAILYP PRN 06/18/19 Multivitamin [Tab-A-Behzad (Multiple Vitamin) Tablet] 2 tab PO DAILY 06/18/19 Nitrofurantoin Macrocrystal [Macrodantin] 1 each PO Q12 06/18/19 Prednisone 2.5 mg PO QAM 06/18/19 Simvastatin 20 mg PO QPM 06/18/19 Allergies/Adverse Reactions: No Known Allergies Allergy (Unverified 03/10/18 21:34) Review of Systems Review of Systems: Constitutional: ABSENT: chills, fatigue, fever(s), weight gain, weight loss; admits headache and generalized weakness Eyes: ABSENT: visual disturbances Ears: ABSENT: hearing changes Cardiovascular: ABSENT: chest pain, dyspnea on exertion, edema, orthropnea, palpitations Respiratory: ABSENT: cough, dyspnea, hemoptysis Gastrointestinal: ABSENT: abdominal pain, constipation, diarrhea, hematemesis, hematochezia, vomiting; admits nausea Genitourinary: ABSENT: dysuria, hematuria Musculoskeletal: ABSENT: joint swelling Integumentary: ABSENT: rash, wounds Neurological: ABSENT: abnormal gait, abnormal speech, confusion, dizziness, focal weakness, numbness, syncope Psychiatric: ABSENT: anxiety, depression Endocrine: ABSENT: cold intolerance, heat intolerance, polydipsia, polyuria Hematologic/Lymphatic: ABSENT: easy bleeding, easy bruising, lymphadenopathy Physical Exam Vital Signs: Temp Pulse Resp BP Pulse Ox 97.8 F 58 L 18 177/83 H 06/18/19 13:59 06/18/19 13:59 06/18/19 16:00 06/18/19 13:59 Intake & Output 06/17/19 06/18/19 06/19/19 06:59 06:59 06:59 Intake Total 1000 Balance 1000 Weight 69.8 kg Exam: General appearance: No acute distress, cooperative, well-developed, well- nourished Head exam: PRESENT: atraumatic, normocephalic Eye exam: PRESENT: Conjunctiva [place], EOMI, PERRLA. ABSENT: conjunctival injection, scleral icterus Mouth exam: PRESENT: moist, neck supple, tongue midline Neck exam: PRESENT: full ROM. ABSENT: carotid bruit, JVD, lymphadenopathy, thyromegaly Respiratory exam: PRESENT: clear to auscultation bilaterally. ABSENT: rales, rhonchi, stridor, wheezes Cardiovascular exam: PRESENT: RRR, +S1, +S2. ABSENT: systolic murmur Pulses: PRESENT: normal radial pulses, normal dorsalis pedis pulses GI/Abdominal exam: PRESENT: normal bowel sounds, soft. ABSENT: guarding, mass, tenderness Rectal exam: Deferred Extremities exam: PRESENT: full ROM. ABSENT: calf tenderness, pedal edema Musculoskeletal: PRESENT: full ROM. ABSENT: deformity Neurological exam: PRESENT: alert, Awake, Oriented to person, Oriented to place, Oriented to time, reflexes normal, CN II-XII grossly intact. ABSENT: motor sensory deficit Psychiatric exam: PRESENT: appropriate affect, normal mood. ABSENT: homicidal ideation, suicidal ideation Skin exam: PRESENT: intact, dry, warm. ABSENT: rash Results Laboratory Results: 06/18/19 13:58 06/18/19 13:58 06/18/19 06/18/19 06/18/19 13:58 13:58 14:55 WBC 10.3 RBC 3.46 L Hgb 12.6 Hct 35.7 L MCV 103 H MCH 36.5 H MCHC 35.4 RDW 16.1 H Plt Count 283 Seg Neutrophils % 66.3 Lymphocytes % 23.7 Monocytes % 8.3 Eosinophils % 0.6 Basophils % 1.1 Absolute Neutrophils 6.8 Absolute Lymphocytes 2.4 Absolute Monocytes 0.9 Absolute Eosinophils 0.1 Absolute Basophils 0.1 Sodium 121.2 L Potassium 4.3 Chloride 86 L Carbon Dioxide 23 Anion Gap 12 BUN 22 H Creatinine 1.09 Est GFR ( Amer) 59 L Est GFR (Non-Af Amer) 49 L Glucose 101 Calcium 10.0 Total Bilirubin 0.8 AST 30 Alkaline Phosphatase 70 Total Protein 7.1 Albumin 4.5 Urine Color STRAW Urine Appearance CLEAR Urine pH 8.0 Ur Specific [place] 1.006 Urine Protein NEGATIVE Urine Glucose (UA) NEGATIVE Urine Ketones NEGATIVE Urine Blood NEGATIVE Urine Nitrite NEGATIVE Ur Leukocyte Esterase NEGATIVE Urine WBC (Auto) 1 Urine RBC (Auto) 2 Urine Osmolality 06/18/19 06/18/19 16:12 16:12 WBC RBC Hgb Hct MCV MCH MCHC RDW Plt Count Seg Neutrophils % Lymphocytes % Monocytes % Eosinophils % Basophils % Absolute Neutrophils Absolute Lymphocytes Absolute Monocytes Absolute Eosinophils Absolute Basophils Sodium Potassium Chloride Carbon Dioxide Anion Gap BUN Creatinine Est GFR ( Amer) Est GFR (Non-Af Amer) Glucose Calcium Total Bilirubin AST Alkaline Phosphatase Total Protein Albumin Urine Color Urine Appearance Urine pH Ur Specific [place] 1.004 Urine Protein Urine Glucose (UA) Urine Ketones Urine Blood Urine Nitrite Ur Leukocyte Esterase Urine WBC (Auto) Urine RBC (Auto) Urine Osmolality 206 L 06/18/19 06/18/19 13:58 13:58 Creatine Kinase 122 CK-MB (CK-2) 1.44 Troponin I < 0.012 Impressions: Chest X-Ray 06/18/19 14:30 IMPRESSION: NO ACUTE RADIOGRAPHIC FINDING IN THE CHEST. Head CT 06/18/19 14:30 IMPRESSION: No acute intracranial pathology. EVIDENCE OF ACUTE STROKE: NO. Assessment & Plan - Diagnosis (1) Hyponatremia Is this a current diagnosis for this admission?: Yes Plan: Patient appears to be euvolemic but will not be surprised if she is mildly volume depleted. Contributory factors should be hydrochlorothiazide, very low- salt diet. Will work-up for other causes of hyponatremia. Agree with checking her TSH, check serum osmolality, uric acid and a.m. cortisol. Advised water restriction to 1200 mL daily. May continue to give normal saline for now. Do serial BMPs and adjust accordingly. I do not think the patient needs any h ypertonic solution at this time. Do neurologic checks while on the floor. (2) Headache Qualifiers: Headache type: unspecified Headache chronicity pattern: acute headache Intractability: not intractable Qualified Code(s): R51 - Headache Is this a current diagnosis for this admission?: Yes Plan: Possibly due to hyponatremia and hypertension. (3) HTN (hypertension) Is this a current diagnosis for this admission?: Yes Plan: Discontinue hydrochlorothiazide but may continue her other blood pressure medications. (4) Chronic kidney disease, stage 3 Is this a current diagnosis for this admission?: Yes Plan: Stable and at baseline. (5) Hypothyroidism Is this a current diagnosis for this admission?: Yes Plan: Check TSH. (6) Rheumatoid arthritis Is this a current diagnosis for this admission?: Yes - Notes Notes: Thank you very much for this consultation. Discussed with Dr. Perera. - Time Time Spent: 50 to 70 Minutes
[2019-06-18] MEDS: LEVOTHYROXINE SODIUM 0.05 MG TABLET PO SCH (18:50)
[2019-06-18] MEDS: CARVEDILOL 3.125 MG TABLET PO SCH (18:51)
[2019-06-18] MEDS: PANTOPRAZOLE SODIUM 40 MG TABLET.DR PO SCH (18:51)
--- NOTE | 2019-06-18 19:02 | EKG REPORT ---
SEVERITY:- NORMAL ECG - SINUS RHYTHM : Confirmed by: Lexa Salcedo MD 18-Jun-2019 19:01:22
--- NOTE | 2019-06-18 19:10 | RADIOLOGY REPORT (SQ) ---
EXAM DESCRIPTION: CT CHEST WITHOUT COMPLETED DATE/TIME: 06/18/2019 5:49 pm REASON FOR STUDY: malignency COMPARISON: None. TECHNIQUE: CT scan performed of the chest without intravenous contrast. Images reviewed with lung, soft tissue and bone windows. Reconstructed coronal and sagittal MPR images reviewed. All images st ored on PACS. All CT scanners at this facility use dose modulation, iterative reconstruction, and/or weight based d osing when appropriate to reduce radiation dose to as low as reasonably achievable (ALARA). [facility]: Dose Right [facility]: CareDose [facility]: Dose Right [facility]: Teradose 4D [facility]: Smart Scribd RADIATION DOSE: CT Rad equipment meets quality standard of care and radiation dose reduction techniq ues were employed. CTDIvol: 6.9 mGy. DLP: 226 mGy-cm. mGy. LIMITATIONS: No technical limitations. FINDINGS: LUNGS AND PLEURA: No pneumothorax. No pulmonary mass. Diffuse chronic appearing intersti tial changes with some nodularity, some calcified. No consolidation or pleural effusion. HILAR AND MEDIASTINAL STRUCTURES: No bulky nodes. No obvious aneurysm. HEART AND VASCULAR STRUCTURES: No aneurysm. No pericardial effusion. UPPER ABDOMEN: No significant findings. Limited exam. THYROID AND OTHER SOFT TISSUES: No masses. No adenopathy. BONES: No acute finding. HARDWARE: None in the chest. OTHER: No other significant findings. IMPRESSION: No pulmonary mass. Diffuse chronic appearing interstitial changes with some nodularity, some calcified. No consolidation or pleural effusion. TECHNICAL DOCUMENTATION: JOB ID: [id number] Quality ID # [id number]: Final reports with documentation of one or more dose reduction techniques (e.g., Au tomated exposure control, adjustment of the mA and/or kV according to patient size, use of iterative reconstruction technique) 2010 [employer]- All Rights Reserved Reading location - IP/workstation name: [email or web address]
[2019-06-18 20:57] LABS: ANION GAP 9 (5-19); BLOOD UREA NITROGEN 19 mg/dL (7-20); CALCIUM 8.6 mg/dL (8.4-10.2); CARBON DIOXIDE 20 mmol/L (22-30); CHLORIDE 94 mmol/L (98-107); GLUCOSE 103 mg/dL (75-110); POTASSIUM 3.7 mmol/L (3.6-5.0); URIC ACID 3.1 mg/dL (2.5-7.5)
[2019-06-18] MEDS: GABAPENTIN 100 MG CAPSULE PO SCH (22:37)
[2019-06-18] MEDS: SIMVASTATIN 10 MG TABLET PO SCH (22:37)
[2019-06-19 05:35] LABS: ABSOLUTE BASOPHILS # (AUTO) 0.1 10^3/uL (0.0-0.2); ABSOLUTE EOSINOPHILS # (AUTO) 0.1 10^3/uL (0.0-0.6); ABSOLUTE LYMPHOCYTES (AUTO) 2.9 10^3/uL (0.5-4.7); ABSOLUTE MONOCYTES (AUTO) 0.8 10^3/uL (0.1-1.4); ABSOLUTE NEUT (AUTO) 4.4 10^3/uL (1.7-8.2); BASOPHILS % (AUTO) 0.9 % (0-2); EOSINOPHILS % (AUTO) 0.8 % (0-6); HEMATOCRIT 32.6 % (36.0-47.0); HEMOGLOBIN 11.4 g/dL (12.0-15.5); LYMPHOCYTES % (AUTO) 35.1 % (13-45); MEAN CORPUSCULAR HEMOGLOBIN 36.3 pg (27.0-33.4); MEAN CORPUSCULAR VOLUME 104 fl (80-97); MONOCYTES % (AUTO) 9.8 % (3-13); PLATELET COUNT 230 10^3/uL (150-450); RED BLOOD COUNT 3.14 10^6/uL (3.72-5.28); RED CELL DISTRIBUTION WIDTH 16.1 % (11.5-14.0); SEGMENTED NEUTROPHILS % (AUTO) 53.4 % (42-78); TOTAL CELLS COUNTED % (AUTO) 100 %; WHITE BLOOD COUNT 8.3 10^3/uL (4.0-10.5)
[2019-06-19] MEDS: PANTOPRAZOLE SODIUM 40 MG TABLET.DR PO SCH ×2 (05:40→17:35)
[2019-06-19 05:58] LABS: ALBUMIN 3.6 g/dL (3.5-5.0); ALKALINE PHOSPHATASE 54 U/L (38-126); ANION GAP 8 (5-19); ASPARTATE AMINO TRANSFERASE 22 U/L (14-36); BILIRUBIN,DIRECT 0.1 mg/dL (0.0-0.4); BILIRUBIN,TOTAL 0.7 mg/dL (0.2-1.3); BLOOD UREA NITROGEN 17 mg/dL (7-20); CARBON DIOXIDE 22 mmol/L (22-30); CHLORIDE 98 mmol/L (98-107); GLUCOSE 82 mg/dL (75-110); TOTAL PROTEIN 5.6 g/dL (6.3-8.2)
[2019-06-19] MEDS ORDERED: PREDNISONE 2.5 MG PO SCH (08:00)
--- NOTE | 2019-06-19 09:23 | EKG REPORT ---
SEVERITY:- ABNORMAL ECG - SINUS RHYTHM PROBABLE INFERIOR INFARCT, OLD LOW VOLTAGE EKG : Confirmed by: Lexa Salcedo MD 19-Jun-2019 09:23:15
[2019-06-19] MEDS: CARVEDILOL 3.125 MG TABLET PO SCH ×2 (09:49→17:35)
[2019-06-19] MEDS: LEVOTHYROXINE SODIUM 0.05 MG TABLET PO SCH (09:49)
[2019-06-19] MEDS: CALCIUM CARBONATE 250 MG/VITAMIN D3 125 UNIT TABLET PO SCH (09:49)
[2019-06-19] MEDS: ASPIRIN 81 MG TABLET, ENT COATED PO SCH (09:49)
[2019-06-19] MEDS: CYANOCOBALAMIN (VITAMIN B-12) 1,000 MCG TABLET PO SCH (09:50)
[2019-06-19] MEDS: ALLOPURINOL 100 MG TABLET PO SCH (09:50)
[2019-06-19] MEDS: FOLIC ACID 1 MG TABLET PO SCH (09:50)
[2019-06-19] MEDS: PREDNISONE 5 MG TABLET PO SCH (09:50)
[2019-06-19] MEDS: MULTIVITAMIN TABLET PO SCH (09:50)
[2019-06-19] MEDS: ENOXAPARIN SODIUM INJ 40 MG/0.4 ML DISP.SYRIN SUBCUT SCH (09:51)
[2019-06-19] MEDS ORDERED: CALCIUM CARBONATE PO SCH (10:00)
[2019-06-19] MEDS ORDERED: CYANOCOBALAMIN 5000 MCG PO SCH (10:00)
[2019-06-19] MEDS ORDERED: VITAMIN D3 PO SCH (10:00)
[2019-06-19] MEDS ORDERED: (PENDING PHARMACY ID) (Flaxseed Oil [Flaxseed] 1,000 MG) PO SCH (10:00)
[2019-06-19] MEDS ORDERED: [UNRECOGNIZED DRUG - OTHER] PO SCH (10:00)
--- NOTE | 2019-06-19 10:50 | PDOC PROGRESS REPORT ---
Subjective Progress Note for:: 06/19/19 Subjective:: 78 year old female history of rheumatoid arthritis, hypertension, gastric further reflux disease, hypothyroidism, history of hyponatremia leading to seizures came to the emergency room with complaints of severe headaches associated weakness from last night. Patient has lab test was done outside facility and serum sodium is 126 at the time and in the ER it is 121. She got 1 L of normal saline emergency room. At the time of my examination patient denies any confusion. Her main complaint is she is feeling nauseated and severe headaches. Patient agreed to stay in this hospital for management of hyponatremia. I explained to her in detail that hyponatremia is a very complicated and it has to be managed with extreme care and I suggested it is better to be transferred to the [facility] or [place] but the patient declined prefers to stay here in this hospital. I spoke to the fig caprifier Dr. Myers she is going to see the patient in the emergency room. [id number]-mlkn-old female with history of rheumatoid arthritis, hypothyroidism, hypertension, gastroparesis reflux disease admitted with hyponatremia. At the time of admission sodium is 122 and complaining of severe headaches associated weakness. Nephrology consult was done and sodium came up to 128 today. Patient doing fine no acute events in the last 24 hours. IV fluids are discontinued Cooper's catheter is going to be removed today. Plan is to repeat the labs this evening or tomorrow to continue to monitor the serum sodium levels. Reason For Visit: HYPONATREMIA Physical Exam Vital Signs: Temp Pulse Resp BP Pulse Ox 97.8 F 58 L 18 129/50 H 99 06/19/19 07:58 06/19/19 07:58 06/19/19 07:58 06/19/19 07:58 06/19/19 07:58 Intake & Output 06/18/19 06/19/19 06/20/19 06:59 06:59 06:59 Intake Total 1000 405 Output Total 2600 Balance -1600 405 Weight 68.5 kg General appearance: PRESENT: no acute distress Head exam: PRESENT: atraumatic Eye exam: PRESENT: PERRLA Ear exam: PRESENT: normal external ear exam Mouth exam: PRESENT: dry mucosa Teeth exam: PRESENT: poor dentation Neck exam: ABSENT: carotid bruit, JVD, lymphadenopathy, thyromegaly Respiratory exam: PRESENT: clear to auscultation brian. ABSENT: rales, rhonchi, wheezes Cardiovascular exam: PRESENT: RRR. ABSENT: diastolic murmur, rubs, systolic murmur GI/Abdominal exam: PRESENT: normal bowel sounds, soft. ABSENT: distended, guarding, mass, organolmegaly, rebound, tenderness Rectal exam: PRESENT: deferred Gentrourinary exam: PRESENT: indwelling catheter Extremities exam: PRESENT: full ROM. ABSENT: calf tenderness, clubbing, pedal edema Neurological exam: PRESENT: alert, awake, oriented to person, oriented to place, oriented to time, oriented to situation, CN II-XII grossly intact. ABSENT: motor sensory deficit Psychiatric exam: PRESENT: appropriate affect, normal mood. ABSENT: homicidal ideation, suicidal ideation Results Laboratory Results: 06/19/19 05:09 06/19/19 05:09 06/18/19 06/18/19 06/18/19 13:58 13:58 14:55 WBC 10.3 RBC 3.46 L Hgb 12.6 Hct 35.7 L MCV 103 H MCH 36.5 H MCHC 35.4 RDW 16.1 H Plt Count 283 Seg Neutrophils % 66.3 Lymphocytes % 23.7 Monocytes % 8.3 Eosinophils % 0.6 Basophils % 1.1 Absolute Neutrophils 6.8 Absolute Lymphocytes 2.4 Absolute Monocytes 0.9 Absolute Eosinophils 0.1 Absolute Basophils 0.1 Sodium 121.2 L Potassium 4.3 Chloride 86 L Carbon Dioxide 23 Anion Gap 12 BUN 22 H Creatinine 1.09 Est GFR ( Amer) 59 L Est GFR (Non-Af Amer) 49 L Glucose 101 Serum Osmolality Uric Acid Calcium 10.0 Magnesium Total Bilirubin 0.8 AST 30 Alkaline Phosphatase 70 Total Protein 7.1 Albumin 4.5 TSH Urine Color STRAW Urine Appearance CLEAR Urine pH 8.0 Ur Specific [place] 1.006 Urine Protein NEGATIVE Urine Glucose (UA) NEGATIVE Urine Ketones NEGATIVE Urine Blood NEGATIVE Urine Nitrite NEGATIVE Ur Leukocyte Esterase NEGATIVE Urine WBC (Auto) 1 Urine RBC (Auto) 2 Urine Osmolality 06/18/19 06/18/19 06/18/19 16:12 16:12 20:30 WBC RBC Hgb Hct MCV MCH MCHC RDW Plt Count Seg Neutrophils % Lymphocytes % Monocytes % Eosinophils % Basophils % Absolute Neutrophils Absolute Lymphocytes Absolute Monocytes Absolute Eosinophils Absolute Basophils Sodium 123.2 L Potassium 3.7 Chloride 94 L Carbon Dioxide 20 L Anion Gap 9 BUN 19 Creatinine 1.02 Est GFR ( Amer) > 60 Est GFR (Non-Af Amer) 52 L Glucose 103 Serum Osmolality Uric Acid 3.1 Calcium 8.6 Magnesium Total Bilirubin AST Alkaline Phosphatase Total Protein Albumin TSH Urine Color Urine Appearance Urine pH Ur Specific [place] 1.004 Urine Protein Urine Glucose (UA) Urine Ketones Urine Blood Urine Nitrite Ur Leukocyte Esterase Urine WBC (Auto) Urine RBC (Auto) Urine Osmolality 206 L 06/18/19 06/19/19 06/19/19 20:30 05:09 05:09 WBC 8.3 RBC 3.14 L Hgb 11.4 L Hct 32.6 L MCV 104 H MCH 36.3 H MCHC 35.0 RDW 16.1 H Plt Count 230 Seg Neutrophils % 53.4 Lymphocytes % 35.1 Monocytes % 9.8 Eosinophils % 0.8 Basophils % 0.9 Absolute Neutrophils 4.4 Absolute Lymphocytes 2.9 Absolute Monocytes 0.8 Absolute Eosinophils 0.1 Absolute Basophils 0.1 Sodium 127.9 L Potassium 4.0 Chloride 98 Carbon Dioxide 22 Anion Gap 8 BUN 17 Creatinine 1.00 Est GFR ( Amer) > 60 Est GFR (Non-Af Amer) 54 L Glucose 82 Serum Osmolality 257 L Uric Acid Calcium 9.0 Magnesium 1.9 Total Bilirubin 0.7 AST 22 Alkaline Phosphatase 54 Total Protein 5.6 L Albumin 3.6 TSH Urine Color Urine Appearance Urine pH Ur Specific [place] Urine Protein Urine Glucose (UA) Urine Ketones Urine Blood Urine Nitrite Ur Leukocyte Esterase Urine WBC (Auto) Urine RBC (Auto) Urine Osmolality 06/19/19 05:09 WBC RBC Hgb Hct MCV MCH MCHC RDW Plt Count Seg Neutrophils % Lymphocytes % Monocytes % Eosinophils % Basophils % Absolute Neutrophils Absolute Lymphocytes Absolute Monocytes Absolute Eosinophils Absolute Basophils Sodium Potassium Chloride Carbon Dioxide Anion Gap BUN Creatinine Est GFR ( Amer) Est GFR (Non-Af Amer) Glucose Serum Osmolality Uric Acid Calcium Magnesium Total Bilirubin AST Alkaline Phosphatase Total Protein Albumin TSH 4.88 H Urine Color Urine Appearance Urine pH Ur Specific [place] Urine Protein Urine Glucose (UA) Urine Ketones Urine Blood Urine Nitrite Ur Leukocyte Esterase Urine WBC (Auto) Urine RBC (Auto) Urine Osmolality 06/18/19 06/18/19 06/18/19 13:58 13:58 13:58 Creatine Kinase 122 CK-MB (CK-2) 1.44 Troponin I < 0.012 NT-Pro-B Natriuret Pep 106 06/18/19 06/19/19 23:37 05:09 Creatine Kinase CK-MB (CK-2) Troponin I NT-Pro-B Natriuret Pep 387 452 H Impressions: Chest CT 06/18/19 00:00 IMPRESSION: No pulmonary mass. Diffuse chronic appearing interstitial changes with some nodularity, some calcified. No consolidation or pleural effusion. Chest X-Ray 06/18/19 14:30 IMPRESSION: NO ACUTE RADIOGRAPHIC FINDING IN THE CHEST. Head CT 06/18/19 14:30 IMPRESSION: No acute intracranial pathology. EVIDENCE OF ACUTE STROKE: NO. Assessment and Plan - Diagnosis (1) Hyponatremia Is this a current diagnosis for this admission?: Yes Plan: 06/18/2019-patient came in with serum sodium of 121 with complaints of headaches and weakness. Plan to put her in IMCU. She received 1 L of normal saline in the emergency room and to continue normal saline at 100 cc/h plan to check the serum sodium tonight. And plan to check the basic metabolic profile every 6 hours. Urine electrolytes were requested urine osmolality was requested. CT chest was requested to rule out Antoinette malignancy. Nephrology consult was reques zain. Patient is on hydrochlorothiazide at home plan is to hold hydrochlorothiazide. Aspiration fall seizure precautions are requested. To start her on Ativan 1 mg IV every 6 for PRN to prevent seizure activity. DVT prophylaxis DVT prophylaxis was initiated. Started on morphine 2 mg IV for the pains and Zofran 4 mg IV every 6 as needed for nausea. Goal is to gradually increase the serum sodium level from 121 to 130 in the next 24 hours. 06/19/2019-serum sodium level today is 128. Improved from 121. Headaches resolved. Weakness is resolved. IV fluids are discontinued from today. Fole y's catheter is going to be removed today. Plan is to recheck the BmP tonight and tomorrow. If everything is stable she may go home tomorrow. TSH is 4.88 and serum cortisol is slightly low. (2) Headache Qualifiers: Headache type: unspecified Headache chronicity pattern: acute headache Intractability: not intractable Qualified Code(s): R51 - Headache Is this a current diagnosis for this admission?: Yes Plan: 06/18/2019-patient came in with severe headaches CT head was negative for acute pathology headaches may be secondary to hyponatremia. Neurochecks are requested every 4 hours. Aspiration fall seizure precautions are requested. 06/19/2019-patient admitted with severe headaches, CT head was negative for acute pathology headaches are resolved. (3) Hypothyroidism Is this a current diagnosis for this admission?: Yes (4) Rheumatoid arthritis Is this a current diagnosis for this admission?: Yes (5) HTN (hypertension) Is this a current diagnosis for this admission?: Yes Plan: 06/18/2019-patient has history of essential hypertension on lisinopril and hydr ochlorothiazide plan is to hold hydrochlorothiazide from now because of the hyponatremia. 06/19/2019-patient blood pressure today is 121/50 stable. Off the IV fluids. Plan is to continue the present management. - Time Time Spent with patient: 15-24 minutes Medications reviewed and adjusted accordingly: Yes Anticipated discharge: Home
[2019-06-19] MEDS: GABAPENTIN 100 MG CAPSULE PO SCH (22:56)
[2019-06-19] MEDS: SIMVASTATIN 10 MG TABLET PO SCH (22:57)
[2019-06-20] MEDS: PANTOPRAZOLE SODIUM 40 MG TABLET.DR PO SCH (05:33)
[2019-06-20 06:56] LABS: ALBUMIN 3.8 g/dL (3.5-5.0); ALKALINE PHOSPHATASE 63 U/L (38-126); ANION GAP 9 (5-19); ASPARTATE AMINO TRANSFERASE 23 U/L (14-36); BILIRUBIN,DIRECT 0.2 mg/dL (0.0-0.4); BILIRUBIN,TOTAL 0.5 mg/dL (0.2-1.3); BLOOD UREA NITROGEN 18 mg/dL (7-20); CALCIUM 9.4 mg/dL (8.4-10.2); CARBON DIOXIDE 22 mmol/L (22-30); CHLORIDE 101 mmol/L (98-107); GLUCOSE 87 mg/dL (75-110); POTASSIUM 4.3 mmol/L (3.6-5.0); TOTAL PROTEIN 5.9 g/dL (6.3-8.2)
[2019-06-20 08:21] VITALS: BP 135/60
[2019-06-20] MEDS: LEVOTHYROXINE SODIUM 0.05 MG TABLET PO SCH (08:25)
[2019-06-20] MEDS: FOLIC ACID 1 MG TABLET PO SCH (08:25)
[2019-06-20] MEDS: CALCIUM CARBONATE 250 MG/VITAMIN D3 125 UNIT TABLET PO SCH (10:03)
[2019-06-20] MEDS: ASPIRIN 81 MG TABLET, ENT COATED PO SCH (10:05)
[2019-06-20] MEDS: ALLOPURINOL 100 MG TABLET PO SCH (10:05)
[2019-06-20] MEDS: CYANOCOBALAMIN (VITAMIN B-12) 1,000 MCG TABLET PO SCH (10:05)
[2019-06-20] MEDS: CARVEDILOL 3.125 MG TABLET PO SCH (10:05)
[2019-06-20] MEDS: MULTIVITAMIN TABLET PO SCH (10:05)
[2019-06-20] MEDS: ENOXAPARIN SODIUM INJ 40 MG/0.4 ML DISP.SYRIN SUBCUT SCH (10:06)
[2019-06-20] MEDS: PREDNISONE 5 MG TABLET PO SCH (10:10)
--- NOTE | 2019-06-20 11:55 | PDOC DISCHARGE SUMMARY ---
General - Admit/Disc Date/PCP Admission Date/Primary Care Provider: 06/18/19 16:06 MARINAARMANDO ALVAREZ, Discharge Date: 06/20/19 - Discharge Diagnosis (1) Hyponatremia Is this a current diagnosis for this admission?: Yes Summary: 06/18/2019-patient came in with serum sodium of 121 with complaints of headaches and weakness. Plan to put her in IMCU. She received 1 L of normal saline in the emergency room and to continue normal saline at 100 cc/h plan to check the serum sodium tonight. And plan to check the basic metabolic profile every 6 hours. Urine electrolytes were requested urine osmolality was requested. CT chest was requested to rule out Antoinette malignancy. Nephrology consult was requested. Patient is on hydrochlorothiazide at home plan is to hold hydrochlorothiazide. Aspiration fall seizure precautions are requested. To start her on Ativan 1 mg IV every 6 for PRN to prevent seizure activity. DVT prophylaxis DVT prophylaxis was initiated. Started on morphine 2 mg IV for the pains and Zofran 4 mg IV every 6 as needed for nausea. Goal is to gradually increase the serum sodium level from 121 to 130 in the next 24 hours. 06/19/2019-serum sodium level today is 128. Improved from 121. Headaches resolved. Weakness is resolved. IV fluids are discontinued from today. Cooper's catheter is going to be removed today. Plan is to recheck the BmP tonight and tomorrow. If everything is stable she may go home tomorrow. TSH is 4.88 and serum cortisol is slightly low. 06/20/2019-serum sodium level today is 132. At the time of admission is 121. Hyponatremia most likely secondary to fluid overload. Patient is on fluid restriction 1200 cc/h. IV fluids are discontinued. Patient is stable enough to go home today. (2) Headache Is this a current diagnosis for this admission?: Yes Summary: 06/18/2019-patient came in with severe headaches CT head was negative for acute pathology headaches may be secondary to hyponatremia. Neurochecks are requested every 4 hours. Aspiration fall seizure precautions are requested. 06/19/2019-patient admitted with severe headaches, CT head was negative for acute pathology headaches are resolved. 06/20/2019-patient admitted with severe headache CT head was negative headaches most likely secondary to electrolyte abnormalities including hyponatremia head ache is resolved now. (3) Hypothyroidism Is this a current diagnosis for this admission?: Yes Summary: 06/20/2019-patient has history of hypothyroidism on levothyroxine TSH is 4.88 patient advised to continue the present management. (4) Rheumatoid arthritis Is this a current diagnosis for this admission?: Yes (5) HTN (hypertension) Is this a current diagnosis for this admission?: Yes Summary: 06/18/2019-patient has history of essential hypertension on lisinopril and hydrochlorothiazide plan is to hold hydrochlorothiazide from now because of the hyponatremia. 06/19/2019-patient blood pressure today is 121/50 stable. Off the IV fluids. Plan is to continue the present management. 06/20/2019-patient blood pressure today is 142/63. Patient advised to continue lisinopril she was strongly advised to hold hydrochlorothiazide because it may be the contributing factor for hyponatremia. - Additional Information Resuscitation Status: Full Code Discharge Diet: Diabetic Discharge Activity: Activity As Tolerated Prescriptions: Valacyclovir HCl [Valtrex 500 Mg Tablet] 500 mg PO DAILY #7 tablet Home Medications: Allopurinol [Zyloprim 100 mg Tablet] 200 mg PO DAILY 06/18/19 Aspirin [Adult Low Dose Aspirin EC] 81 mg PO QPM 06/18/19 Calcium Carbonate/Vitamin D3 [Calcium 600 + Vit D Tablet] 1 each PO DAILY 06/18/19 Carvedilol [Coreg 12.5 mg Tablet] 25 mg PO BID 06/18/19 Cyanocobalamin (Vitamin B-12) [B-12] 5,000 mcg PO DAILY 06/18/19 Docusate Sodium [Colace 100 mg Capsule] 100 mg PO BID 06/18/19 Enalapril Maleate [Vasotec 20 mg Tablet] 40 mg PO BID 06/18/19 Esomeprazole Magnesium [Nexium] 20 mg PO QAM 06/18/19 Eszopiclone [Lunesta] 3 mg PO QPMP PRN 06/18/19 Flaxseed Oil [Flaxseed] 1,000 mg PO DAILY 06/18/19 Folic Acid [Folvite 1 mg Tablet] 1 mg PO QAM 06/18/19 Gabapentin [Neurontin 100 mg Capsule] 300 mg PO QHS 06/18/19 Inulin/Chromium Picolinate [Fiber Gummies] 2 ea PO DAILY 06/18/19 Levothyroxine Sodium 75 mcg PO QAM 06/18/19 Meclizine HCl [Motion Relief] 25 mg PO DAILYP PRN 06/18/19 Multivitamin [Tab-A-Behzad (Multiple Vitamin) Tablet] 2 tab PO DAILY 06/18/19 Prednisone 2.5 mg PO QAM 06/18/19 Simvastatin 20 mg PO QPM 06/18/19 Flaxseed Oil [Flaxseed] 1,000 mg PO .DAILY 06/20/19 Valacyclovir HCl [Valtrex 500 Mg Tablet] 500 mg PO DAILY #7 tablet 06/20/19 History of Present Illness History of Present Illness: JUAN ANTONIO JONES is a 78 year old female history of rheumatoid arthritis, hypertension, gastric further reflux disease, hypothyroidism, history of hyponatremia leading to seizures came to the emergency room with complaints of severe headaches associated weakness from last night. Patient has lab test was done outside facility and serum sodium is 126 at the time and in the ER it is 121. She got 1 L of normal saline emergency room. At the time of my examination patient denies any confusion. Her main complaint is she is feeling nauseated and severe headaches. Patient agreed to stay in this hospital for management of hyponatremia. I explained to her in detail that hyponatremia is a very complicated and it has to be managed with extreme care and I suggested it is better to be transferred to the [facility] but the patient declined prefers to stay here in this hospital. I spoke to the women designer Dr. Myers she is going to see the patient in the emergency room. Hospital Course Hospital Course: 78 year old female history of rheumatoid arthritis, hypertension, gastric further reflux disease, hypothyroidism, history of hyponatremia leading to seizures came to the emergency room with complaints of severe headaches associated weakness from last night. Patient has lab test was done outside facility and serum sodium is 126 at the time and in the ER it is 121. She got 1 L of normal saline emergency room. At the time of my examination patient denies any confusion. Her main complaint is she is feeling nauseated and severe headaches. Patient agreed to stay in this hospital for management of hyponatr emia. I explained to her in detail that hyponatremia is a very complicated and it has to be managed with extreme care and I suggested it is better to be transferred to the [facility] but the patient declined prefers to stay here in this hospital. I spoke to the women designer Dr. Myers she is going to see the patient in the emergency room. 06/[id number]-sqgd-old female with history of rheumatoid arthritis, hypothyroidism, hypertension, gastroparesis reflux disease admitted with hyponatremia. At the time of admission sodium is 122 and complaining of severe headaches associated weakness. Nephrology consult was done and sodium came up to 128 today. Patient doing fine no acute events in the last 24 hours. IV fluids are discontinued Cooper's catheter is going to be removed today. Plan is to repeat the labs this evening or tomorrow to continue to monitor the serum sodium levels. 06/[id number]-lavy-old female with multiple medical problems admitted with hyponatremia serum sodium is 132 today .she had no acute events in the last 24 hours. Afebrile. Physical Exam Vital Signs: Temp Pulse Resp BP Pulse Ox 98.0 F 60 16 135/60 H 98 06/20/19 11:40 06/20/19 11:40 06/20/19 11:40 06/20/19 11:40 06/20/19 11:40 Intake & Output 06/19/19 06/20/19 06/21/19 06:59 06:59 06:59 Intake Total 1000 1527 Output Total 2600 675 Balance -1600 852 Weight 68.5 kg 66.5 kg General appearance: PRESENT: no acute distress Head exam: PRESENT: atraumatic Eye exam: PRESENT: PERRLA Mouth exam: PRESENT: dry mucosa Teeth exam: PRESENT: poor dentation Neck exam: ABSENT: carotid bruit, JVD, lymphadenopathy, thyromegaly Respiratory exam: PRESENT: clear to auscultation brian. ABSENT: rales, rhonchi, wheezes Cardiovascular exam: PRESENT: RRR. ABSENT: diastolic murmur, rubs, systolic murmur GI/Abdominal exam: PRESENT: normal bowel sounds, soft. ABSENT: distended, guarding, mass, organolmegaly, rebound, tenderness Rectal exam: PRESENT: deferred Neurological exam: PRESENT: alert Psychiatric exam: PRESENT: appropriate affect, normal mood. ABSENT: homicidal ideation, suicidal ideation Results Laboratory Results: 06/19/19 05:09 06/20/19 05:33 06/20/19 05:33 Sodium 132.1 L Potassium 4.3 Chloride 101 Carbon Dioxide 22 Anion Gap 9 BUN 18 Creatinine 1.09 Est GFR ( Amer) 59 L Est GFR (Non-Af Amer) 49 L Glucose 87 Calcium 9.4 Total Bilirubin 0.5 AST 23 Alkaline Phosphatase 63 Total Protein 5.9 L Albumin 3.8 06/18/19 06/18/19 06/18/19 13:58 13:58 13:58 Creatine Kinase 122 CK-MB (CK-2) 1.44 Troponin I < 0.012 NT-Pro-B Natriuret Pep 106 06/18/19 06/19/19 23:37 05:09 Creatine Kinase CK-MB (CK-2) Troponin I NT-Pro-B Natriuret Pep 387 452 H Impressions: Chest CT 06/18/19 00:00 IMPRESSION: No pulmonary mass. Diffuse chronic appearing interstitial changes with some nodularity, some calcified. No consolidation or pleural effusion. Chest X-Ray 06/18/19 14:30 IMPRESSION: NO ACUTE RADIOGRAPHIC FINDING IN THE CHEST. Head CT 06/18/19 14:30 IMPRESSION: No acute intracranial pathology. EVIDENCE OF ACUTE STROKE: NO. Qualifiers - * PATIENT BEING DISCHARGED WITH ANY OF THE FOLLOWING DIAGNOSIS: No Acute Heart Failure - Is this a Heart Failure Patient?: No
== END 2019-06-20 12:02 | disposition home or self-care (01) | DRG 641 ==
LOC: ER 13:42 → EH 16:06 → 3S 18:02
PROVIDERS: ADMIT Internal Medicine; ATTEND Internal Medicine
DX: E87.1 Hypo-osmolality and hyponatremia (principal); M06.9 Rheumatoid arthritis, unspecified; K21.9 Gastro-esophageal reflux disease without esophagitis; E03.9 Hypothyroidism, unspecified; R51 Headache; Z79.899 Other long term (current) drug therapy; I12.9 Hypertensive chronic kidney disease with stage 1 through stage 4 chronic kidney disease, or unspecified chronic kidney disease; N18.3 Chronic kidney disease, stage 3 (moderate); Z87.891 Personal history of nicotine dependence; Z79.82 Long term (current) use of aspirin; E87.70 Fluid overload, unspecified
CPT/HCPCS: 36415; 70450; 71045; 71250; 80053; 81001; 81002; 82533; 82550; 82553; 83036; 83735; 83880; 83930; 83935; 84133; 84300; 84443; 84484; 84550; 85025; 87070; 93005; 93010; 96361; 96374; 96375; 99285; J1200; J1650; J2765; J3490; J7030; J7512

== ENCOUNTER 2020-05-16 22:42 | Inpatient (IN) | payer MEDICARE, BC ==
[2020-05-16 23:18] LABS: HEMATOCRIT 37.3 % (36.0-47.0); HEMOGLOBIN 13.1 g/dL (12.0-15.5); MEAN CORPUSCULAR HGB CONC 35.3 g/dL (32.0-36.0); MEAN CORPUSCULAR VOLUME 105 fl (80-97); PLATELET COUNT 319 10^3/uL (150-450); RED BLOOD COUNT 3.56 10^6/uL (3.72-5.28); RED CELL DISTRIBUTION WIDTH 17.1 % (11.5-14.0); WHITE BLOOD COUNT 12.2 10^3/uL (4.0-10.5)
[2020-05-16 23:26] LABS: ALBUMIN 4.4 g/dL (3.5-5.0); ALKALINE PHOSPHATASE 78 U/L (38-126); ANION GAP 8 (5-19); ASPARTATE AMINO TRANSFERASE 29 U/L (14-36); BILIRUBIN,TOTAL 0.4 mg/dL (0.2-1.3); BLOOD UREA NITROGEN 21 mg/dL (7-20); CARBON DIOXIDE 22 mmol/L (22-30); CHLORIDE 93 mmol/L (98-107); GLUCOSE 108 mg/dL (75-110); POTASSIUM 4.8 mmol/L (3.6-5.0); TOTAL PROTEIN 6.9 g/dL (6.3-8.2)
[2020-05-16 23:44] LABS: ABSOLUTE LYMPHOCYTES# (MANUAL) 5.1 10^3/uL (0.5-4.7); ABSOLUTE MONOCYTES # (MANUAL) 0.5 10^3/uL (0.1-1.4); BASOPHILS % (MANUAL) 0 % (0-2); EOSINOPHILS % (MANUAL) 0 % (0-6); LYMPHOCYTES % (MANUAL) 41 % (13-45); MONOCYTES % (MANUAL) 4 % (3-13); SEGMENTED NEUTROPHILS % (MAN) 54 % (42-78); TOTAL CELLS COUNTED 100
[2020-05-16 23:49] LABS: ANISOCYTOSIS 1+; PLATELET COMMENT ADEQUATE; TEAR DROP CELLS SLIGHT; TOXIC GRANULATION SLIGHT
[2020-05-17 00:02] LABS: APPEARANCE,URINE CLEAR; BILIRUBIN,URINE NEGATIVE (NEGATIVE); COLOR,URINE STRAW; GLUCOSE, URINE NEGATIVE (NEGATIVE); KETONES,URINE NEGATIVE (NEGATIVE); LEUKOCYTE ESTERASE,URINE MODERATE (NEGATIVE); NITRITE,URINE NEGATIVE (NEGATIVE); PROTEIN,URINE NEGATIVE (NEGATIVE); URINE SPECIFIC GRAVITY 1.006; UROBILINOGEN,URINE NEGATIVE mg/dL (<2.0)
[2020-05-17] MEDS ORDERED: ONDANSETRON HCL INJ/PF 4 MG/2 ML SDV IV ONE (00:55)
[2020-05-17] MEDS ORDERED: FENTANYL CITRATE INJ/PF 100 MCG/2 ML AMPUL IV ONE (00:56)
[2020-05-17] MEDS ORDERED: NORMAL SALINE 1000 ML 1,000 ML IV ONE ×2 (02:00→05:10)
--- NOTE | 2020-05-17 02:03 | RADIOLOGY REPORT (SQ) ---
EXAM DESCRIPTION: CT ABDOMEN PELVIS WITHOUT IV CONTRAST COMPLETED DATE/TME: 05/17/2020 00:51 CLINICAL HISTORY: 79 years, Female, epigastric pain COMPARISON: None. TECHNIQUE: [id number] Images stored on PACS. All CT scanners at this facility use dose modulation, iterative reconstruction, and/or weight based dosing when appropriate to reduce radiation dose to as low as reasonably achievable (ALARA). [facility]: Dose Right [facility]: CareDose [facility]: Dose Right [facility]: Teradose 4D [facility]: MiniLuxe LIMITATIONS: None. FINDINGS: Limited evaluation of the lung bases is unremarkable. Osseous structures show degenerative changes of the lumbar spine. Pars defects at L5-S1 with grade 1 spondylolisthesis. The visualized liver, spleen, adrenal glands, pancreas, kidneys are unremarkable. The gallbladder is contracted. No gross evidence for bowel obstruction. Large amount of stool in the colon. Scattered colonic diverticuli without CT evidence for diverticulitis. The appendix is not well seen. No pericecal inflammation. Moderate atheromatous change. No free air or free fluid. IMPRESSION: No acute intra-abdominal/pelvic process. Colonic diverticulosis without CT evidence for diverticulitis. TECHNICAL DOCUMENTATION: Quality ID # [id number]: Final reports with documentation of one or more dose reduction techniques (e.g., Automated exposure control, adjustment of the mA and/or kV according to patient size, use of iterative reconstruction technique) copyright 2011 [employer]- All Rights Reserved
--- NOTE | 2020-05-17 02:12 | RADIOLOGY REPORT (SQ) ---
EXAM DESCRIPTION: XR CHEST 1 VIEW COMPLETED DATE/TME: 05/17/2020 00:54 CLINICAL HISTORY: 79 years, Female, CP COMPARISON: 06/18/2019 chest NUMBER OF VIEWS: 1 TECHNIQUE: Portable chest LIMITATIONS: None. FINDINGS: The heart size is normal. Lungs are clear. No pneumothorax IMPRESSION: No acute cardiopulmonary process copyright 2010 [email or web address]- All Rights Reserved
--- NOTE | 2020-05-17 02:17 | ER Document Report ---
ED General - General Chief Complaint: Epigastric Pain Stated Complaint: CHEST PAIN Time Seen by Provider: 05/17/20 00:08 TRAVEL OUTSIDE OF THE [place] IN LAST 30 DAYS: No - HPI Notes: Chief complaint: Subxiphoid pain, labile blood pressure, generalized weakness and constipation HPI: 79-year-old female with history of multiple chronic medical problems presents with symptoms as noted above progressively worsening over the past 3 to 4 days. She denies nausea or vomiting. She experienced similar symptoms requiring hospitalization approximately 1 year ago when she was severely hyponatremic. She apparently had a seizure at that time but reports no recent seizure activity. She has a history of stage III chronic kidney disease. She also has a history of rheumatoid arthritis. Patient says she has had to take clonidine several times today because her systolic blood pressures above 180 and she has been instructed to use this medicine supplementally when her blood pressure is extremely high. - Related Data Allergies/Adverse Reactions: lactose Allergy (Verified 05/17/20 00:16) Past Medical History - General Information source: Patient, [facility] Records - Social History Smoking Status: Never Smoker Frequency of alcohol use: None Drug Abuse: None Family History: Reviewed & Not Pertinent Patient has homicidal ideation: No - Past Medical History Cardiac Medical History: Reports: Hx Hypercholesterolemia, Hx Hypertension Endocrine Medical History: Reports: Hx Hypothyroidism Renal/ Medical History: Reports: Hx Renal Insufficiency - Stage III. Denies: Hx Peritoneal Dialysis GI Medical History: Reports: Hx Gastroesophageal Reflux Disease Musculoskeletal Medical History: Reports Hx Arthritis Psychiatric Medical History: Denies: Hx Depression Review of Systems - Review of Systems Notes: Constitutional: Negative for fever. HENT: Negative for sore throat. Eyes: Negative for visual changes. Cardiovascular: As per HPI. Respiratory: Negative for shortness of breath. Gastrointestinal: As per HPI. Genitourinary: Negative for dysuria. Musculoskeletal: Negative for back pain. Skin: Negative for rash. Neurological: Negative for headaches, focal weakness or numbness. 10 point ROS negative except as marked above and in HPI. Physical Exam - Vital signs Vitals: Temp 97.8 F 05/16/20 22:42 - Notes Notes: GENERAL: Frail elderly female appearing anxious. SKIN: Good turgor no rashes. HEAD: Normocephalic atraumatic. EYES: PERRLA. EOMI. Conjunctivae and sclerae clear. EARS: CANALS AND TMS CLEAR. NOSE: CLEAR. MOUTH: Moist mucosa. Good dentition. No stridor or edema. No drooling. NECK: Supple. No masses or thyromegaly. No adenopathy. Carotids 2+ without bruits. No JVD. BACK: Symmetrical without tenderness. CHEST: Respirations unlabored. Breath sounds clear and symmetrical. HEART: Regular rhythm. No murmur gallop or rub. ABDOMEN: Mild tenderness both upper quadrants abdomen. Soft without masses, organomegaly or rebound. Bowel sounds normally active. No bruits. GENITALIA: Deferred. EXTREMITIES: No edema. No calf tenderness. Cap refill less than 1.5 seconds. Dorsalis pedis and posterior tibial pulses 3+ and symmetrical. NEUROLOGICAL: GCS 15. Alert and oriented x3. Fluent speech. Cranial nerves II through XII intact. Sensorimotor and cerebellar normal. Normal tone. PSYCHIATRIC: Anxious affect. Course - Re-evaluation Re-evalutation: 05/17/20 02:22 Patient's EKG shows a normal sinus rhythm and normal intervals. She is significantly hyponatremic with sodium of 123. No significant pathology demo nstrated on noncontrast CT abdomen pelvis. Troponin is normal. Chest x-ray shows no active disease. I think most of her current symptoms are probably due to her recurrent hyponatremia. On further questioning she says she felt "just the same way" last year when she was admitted for hyponatremia. I started some IV normal saline and will speak with the hospitalist alteration specialist Dr. Zurdo Mcdaniel for admission. 05/17/20 02:34 Dr. Mcdaniel has accepted patient for admission to telemetry on observation s tatus. - Vital Signs Vital signs: Temp Pulse Resp BP Pulse Ox 97.8 F 16 127/61 H 96 05/16/20 22:42 05/17/20 02:31 05/17/20 02:31 05/17/20 02:15 - Laboratory Result Diagrams: 05/16/20 22:53 05/16/20 22:53 Laboratory results interpreted by me: 05/16/20 05/16/20 05/16/20 22:53 22:53 23:44 WBC 12.2 H RBC 3.56 L MCV 105 H MCH 37.0 H RDW 17.1 H Abs Lymphs (Manual) 5.1 H Sodium 123.4 L Chloride 93 L BUN 21 H Est GFR (MDRD) Non-Af 55 L Urine Blood SMALL H Ur Leukocyte Esterase MODERATE H - Diagnostic Test Radiology reviewed: Reports reviewed - Noncontrast CT abdomen pelvis per radiologist: Diverticulosis without diverticulitis. Otherwise unremarkable. - EKG Interpretation by Me Additional EKG results interpreted by me: 05/17/20 02:24 Twelve-lead EKG from 2253 hrs. is reviewed contemporaneously by me demonstrating a normal sinus rhythm rate of 66 normal intervals and a normal QRS axis of +27 degrees. She has no acute ST/T wave changes. Indication for current study: Hypertension and chest discomfort. Discharge - Discharge Clinical Impression: Hyponatremia, Chronic kidney disease, stage 3 Rheumatoid arthritis Qualifiers: Rheumatoid arthritis location: multiple sites Rheumatoid factor presence: unspecified presence Qualified Code(s): M06.9 - Rheumatoid arthritis, unspecified HTN (hypertension) Qualifiers: Hypertension type: unspecified Qualified Code(s): I10 - Essential (primary) hypertension Condition: Fair Disposition: ADMITTED OBSERVATION Admitting Provider: Violeta (Hospitalist) Unit Admitted: Telemetry
[2020-05-17] MEDS ORDERED: MAGNESIUM HYDROXIDE SUSP 30 ML UDCUP PO PRN (05:04)
[2020-05-17] MEDS ORDERED: ONDANSETRON HCL INJ/PF 4 MG/2 ML SDV IV PRN (05:04)
[2020-05-17] MEDS ORDERED: MAG HYDROX/AL HYDROX/SIMETH SUSP 30 ML UDCUP PO PRN (05:04)
--- NOTE | 2020-05-17 05:04 | PDOC H&P ---
History of Present Illness Admission Date/PCP: 05/17/20 02:47 MARINA ALVAREZ DO Patient complains of: Generalized weakness History of Present Illness: JUAN ANTONIO JONES is a 79 year old female who presented to the emergency room with a 4-day history of generalized weakness. She admits progressively worsening generalized weakness accompanied by epigastric discomfort and constipation and associated with labile hypertension over the last 4 days. She denies other associated or accompanying signs and symptoms. 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 She admits to taking several doses of clonidine over the days prior to admission, because of severe labile hypertension. She has not identified any aggravating or ameliorating factors for her generalized weakness. In the emergency room she was found to have a serum sodium of 123.4 without other remarkable abnormalities. Emergency room physician was quite concerned that the patient had a history of seizures, coma and associated hyponatremia, although it was noted that her seizure in coma occurred with a serum sodium less than 117. It was decided to admit the patient to observation status for further evaluation and treatment. Past Medical History Cardiac Medical History: Reports: Hyperlipidema, Hypertension Pulmonary Medical History: Denies: Asthma, Chronic Obstructive Pulmonary Disease (COPD) EENT Medical History: Denies: Cataracts, Ears - Hearing aids Neurological Medical History: Reports: Seizures - Hyponatremic seizure, Other - Raynaud's syndrome affecting the bilateral feet and lower extremities Denies: Hemorrhagic CVA, Ischemic CVA Endocrine Medical History: Reports: Hypothyroidism Denies: Diabetes Mellitus Type 1, Diabetes Mellitus Type 2, Hyperthyroidism Renal/ Medical History: Reports: Chronic Kidney Disease Denies: Nephrolithiasis Malignancy Medical History: Reports: None GI Medical History: Reports: Gastroesophageal Reflux Disease Denies: Cirrhosis, Hepatitis, Peptic Ulcer Disease Musculoskeltal Medical History: Reports: Arthritis - Rheumatoid arthritis affecting numerous joints, Gout - Bilateral feet and toes Skin Medical History: Reports: Other - Recurrent vesicular dermatitis, requiring continuous antiviral therapy Denies: Eczema, Psoriasis Psychiatric Medical History: Denies: Alcohol Dependency, Depression, Substance Abuse, Tobacco Dependency Traumatic Medical History: Reports: None Hematology: Denies: Anemia, Bleeding Tendencies Infectious Medical History: Reports: None Past Surgical History Past Surgical History: Reports: None Social History Information Source: Patient Lives with: Alone Smoking Status: Former Smoker Electronic Cigarette use?: No Frequency of Alcohol Use: None Hx Recreational Drug Use: No Drugs: None Hx Prescription Drug Abuse: No - Advance Directive Resuscitation Status: Full Code Surrogate healthcare decision maker:: Mireya Medrano Family History Family History: denies: CAD, DM, Hypertension, Malignancy Parental Family History Reviewed: Yes Children Family History Reviewed: No Sibling(s) Family History Reviewed.: Yes Medication/Allergy Home Medications: Allopurinol [Zyloprim 100 mg Tablet] 200 mg PO DAILY 06/18/19 Aspirin [Adult Low Dose Aspirin EC] 81 mg PO QPM 06/18/19 Calcium Carbonate/Vitamin D3 [Calcium 600 + Vit D Tablet] 1 each PO DAILY 06/18/19 Carvedilol [Coreg 12.5 mg Tablet] 25 mg PO BID 06/18/19 Cyanocobalamin (Vitamin B-12) [B-12] 5,000 mcg PO DAILY 06/18/19 Docusate Sodium [Colace 100 mg Capsule] 100 mg PO BID 06/18/19 Enalapril Maleate [Vasotec 20 mg Tablet] 40 mg PO BID 06/18/19 Esomeprazole Magnesium [Nexium] 20 mg PO QAM 06/18/19 Eszopiclone [Lunesta] 3 mg PO QPMP PRN 06/18/19 Flaxseed Oil [Flaxseed] 1,000 mg PO DAILY 06/18/19 Folic Acid [Folvite 1 mg Tablet] 1 mg PO QAM 06/18/19 Gabapentin [Neurontin 100 mg Capsule] 300 mg PO QHS 06/18/19 Inulin/Chromium Picolinate [Fiber Gummies] 2 ea PO DAILY 06/18/19 Levothyroxine Sodium 75 mcg PO QAM 06/18/19 Meclizine HCl [Motion Relief] 25 mg PO DAILYP PRN 06/18/19 Multivitamin [Tab-A-Behzad (Multiple Vitamin) Tablet] 2 tab PO DAILY 06/18/19 Prednisone 2.5 mg PO QAM 06/18/19 Simvastatin 20 mg PO QPM 06/18/19 Flaxseed Oil [Flaxseed] 1,000 mg PO .DAILY 06/20/19 Valacyclovir HCl [Valtrex 500 Mg Tablet] 500 mg PO DAILY #7 tablet 06/20/19 Allergies/Adverse Reactions: lactose Allergy (Verified 05/17/20 00:16) Review of Systems Constitutional: PRESENT: weakness - Generalized weakness. ABSENT: chills, fever(s) Eyes: ABSENT: visual disturbances, other - Eye pain Ears: ABSENT: hearing changes, other - Ear pain Nose, Mouth, and Throat: ABSENT: headache(s), sore throat Cardiovascular: ABSENT: chest pain, palpitations Respiratory: ABSENT: cough, dyspnea Gastrointestinal: PRESENT: abdominal pain - Epigastric pain, constipation - X 3 to 4 days. ABSENT: diarrhea, nausea, vomiting Genitourinary: ABSENT: dysuria, hematuria Musculoskeletal: ABSENT: back pain, joint swelling Integumentary: ABSENT: pruritus, rash Neurological: ABSENT: confusion, convulsions, focal weakness, memory loss, syncope Psychiatric: ABSENT: anxiety, depression Endocrine: ABSENT: cold intolerance, heat intolerance, polydipsia, polyphagia, polyuria Hematologic/Lymphatic: ABSENT: easy bleeding, easy bruising Allergic/Immunologic: ABSENT: seasonal rhinorrhea Physical Exam Vital Signs: Temp Pulse Resp BP Pulse Ox 97.8 F 16 127/61 H 96 05/16/20 22:42 05/17/20 02:31 05/17/20 02:31 05/17/20 02:15 Intake & Output 05/15/20 05/16/20 05/17/20 23:59 23:59 23:59 Weight 67.585 kg General appearance: PRESENT: no acute distress, cooperative Head exam: PRESENT: atraumatic, normocephalic Eye exam: PRESENT: conjunctiva pink. ABSENT: conjunctival injection, scleral icterus Ear exam: PRESENT: normal external ear exam. ABSENT: bleeding, drainage Mouth exam: PRESENT: dry mucosa, neck supple Neck exam: ABSENT: thyromegaly, tracheal deviation Respiratory exam: PRESENT: clear to auscultation brian, symmetrical, unlabored Cardiovascular exam: PRESENT: RRR. ABSENT: clicks, gallop, rubs Pulses: PRESENT: normal radial pulses, normal dorsalis pedis pul Vascular exam: PRESENT: normal capillary refill. ABSENT: pallor GI/Abdominal exam: PRESENT: normal bowel sounds, soft Rectal exam: PRESENT: deferred Extremities exam: ABSENT: joint swelling, pedal edema Musculoskeletal exam: ABSENT: deformity, dislocation Neurological exam: PRESENT: alert, oriented to person, oriented to place, oriented to time, oriented to situation, CN II-XII grossly intact. ABSENT: motor sensory deficit Psychiatric exam: PRESENT: appropriate affect, normal mood Skin exam: PRESENT: dry, intact, warm. ABSENT: jaundice, rash, urticaria Results Laboratory Results: 05/16/20 23:53 05/16/20 23:53 05/16/20 05/16/20 05/16/20 22:53 22:53 23:44 WBC 12.2 H RBC 3.56 L Hgb 13.1 Hct 37.3 MCV 105 H MCH 37.0 H MCHC 35.3 RDW 17.1 H Plt Count 319 Seg Neutrophils % Not Reportable Sodium 123.4 L Potassium 4.8 Chloride 93 L Carbon Dioxide 22 Anion Gap 8 BUN 21 H Creatinine 0.98 Est GFR ( Amer) > 60 Est GFR (Non-Af Amer) Glucose 108 Calcium 10.0 Magnesium Total Bilirubin 0.4 AST 29 Alkaline Phosphatase 78 Total Protein 6.9 Albumin 4.4 Lipase 196.5 Urine Color STRAW Urine Appearance CLEAR Urine pH 8.0 Ur Specific [place] 1.006 Urine Protein NEGATIVE Urine Glucose (UA) NEGATIVE Urine Ketones NEGATIVE Urine Blood SMALL H Urine Nitrite NEGATIVE Ur Leukocyte Esterase MODERATE H Urine WBC (Auto) 4 Urine RBC (Auto) 1 05/16/20 05/16/20 23:53 23:53 WBC Cancelled RBC Cancelled Hgb Cancelled Hct Cancelled MCV Cancelled MCH Cancelled MCHC Cancelled RDW Cancelled Plt Count Cancelled Seg Neutrophils % Cancelled Sodium Cancelled Potassium Cancelled Chloride Cancelled Carbon Dioxide Cancelled Anion Gap Cancelled BUN Cancelled Creatinine Cancelled Est GFR ( Amer) Cancelled Est GFR (Non-Af Amer) Cancelled Glucose Cancelled Calcium Cancelled Magnesium 1.9 Total Bilirubin Cancelled AST Cancelled Alkaline Phosphatase Cancelled Total Protein Cancelled Albumin Cancelled Lipase Cancelled Urine Color Urine Appearance Urine pH Ur Specific [place] Urine Protein Urine Glucose (UA) Urine Ketones Urine Blood Urine Nitrite Ur Leukocyte Esterase Urine WBC (Auto) Urine RBC (Auto) 05/16/20 23:53 Troponin I < 0.012 Impressions: Abdomen/Pelvis CT 05/17/20 00:51 IMPRESSION: No acute intra-abdominal/pelvic process. Colonic diverticulosis without CT evidence for diverticulitis. TECHNICAL DOCUMENTATION: Quality ID # [id number]: Final reports with documentation of one or more dose reduction techniques (e.g., Automated exposure control, adjustment of the mA and/or kV according to patient size, use of iterative reconstruction technique) copyright 2010 [employer]- All Rights Reserved Chest X-Ray 05/17/20 00:54 IMPRESSION: No acute cardiopulmonary process copyright 2010 [employer]- All Rights Reserved Assessment and Plan - Diagnosis (1) Epigastric abdominal pain Is this a current diagnosis for this admission?: Yes (2) Hyponatremia Is this a current diagnosis for this admission?: Yes (3) Constipation Qualifiers: Constipation type: unspecified constipation type Qualified Code(s): K59.00 - Constipation, unspecified Is this a current diagnosis for this admission?: Yes (4) Hypothyroidism Qualifiers: Hypothyroidism type: unspecified Qualified Code(s): E03.9 - Hypothyroidism, unspecified Is this a current diagnosis for this admission?: Yes (5) Rheumatoid arthritis Qualifiers: Rheumatoid arthritis location: multiple sites Rheumatoid factor presence: unspecified presence Qualified Code(s): M06.9 - Rheumatoid arthritis, unspecified Is this a current diagnosis for this admission?: Yes (6) HTN (hypertension) Qualifiers: Hypertension type: essential hypertension Qualified Code(s): I10 - Essential (primary) hypertension Is this a current diagnosis for this admission?: Yes (7) Raynaud's syndrome Qualifiers: Raynaud?s-associated gangrene presence: without gangrene Qualified Code(s): I73.00 - Raynaud's syndrome without gangrene Is this a current diagnosis for this admission?: Yes (8) Gout Qualifiers: Gout site: foot Encounter type: initial encounter Chronicity: chronic Presence of tophus: without tophus Is this a current diagnosis for this admission?: Yes (9) 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 Serial cardiac enzymes will be obtained. She will receive Ativan 1 mg IV every 4 hours as needed anxiety or restlessness. She will be initially treated with IV normal saline at 167 mL/h x 12 hours. CBCs, metabolic profiles and magnesium levels as well as other laboratory and/or radiographic evaluations will be obtained as appropriate. A thyroid profile will be obtained. Patient's medications will be reviewed for any agents which may be contributing to her chronic hyponatremia. She was placed on a cardiac diet. - Time Time Spent with patient: 15-24 minutes Medications reviewed and adjusted accordingly: Yes Anticipated discharge: Home Within: within 48 hours - Inpatient Certification Based on my medical assessment, after consideration of the patient's comorbidities, presenting symptoms, or acuity I expect that the services needed warrant INPATIENT care.: No I certify that my determination is in accordance with my understanding of Medicare's requirements for reasonable and necessary INPATIENT services [42 CFR 412.3e].: No
[2020-05-17] MEDS ORDERED: ACETAMINOPHEN 325 MG TABLET PO PRN (05:13)
[2020-05-17] MEDS ORDERED: METOPROLOL TARTRATE PF/INJ 5 MG/5 ML SDV IV PRN (05:13)
[2020-05-17] MEDS ORDERED: HYDRALAZINE HCL INJ/PF 20 MG/1 ML SDV IV PRN (05:13)
[2020-05-17] MEDS ORDERED: MORPHINE SULFATE 10 MG/ML INJ IV PRN ×4 (05:13→05:33)
[2020-05-17] MEDS ORDERED: GUAIFENESIN SYRP 200 MG/10 ML UDC PO PRN (05:13)
[2020-05-17] MEDS ORDERED: LORAZEPAM INJ 2 MG/1 ML VIAL IV PRN (05:13)
[2020-05-17] MEDS: HEPARIN SOD (PORCINE) 5,000 UNIT/ML 1 ML VIAL SUBCUT SCH ×3 (05:46→21:36)
--- NOTE | 2020-05-17 07:36 | EKG REPORT ---
SEVERITY:- NORMAL ECG - SINUS RHYTHM : Confirmed by: Lexa Salcedo MD 17-May-2020 07:35:19
[2020-05-17] MEDS: DOCUSATE SODIUM 100 MG CAPSULE PO SCH ×3 (09:19→17:25)
[2020-05-17] MEDS: SODIUM BICARBONATE 650 MG TABLET PO SCH ×4 (09:19→21:33)
[2020-05-17 09:45] LABS: CREATINE KINASE MB 2.88 ng/mL (<4.55)
[2020-05-17 09:58] LABS: TROPONIN I 0.246 ng/mL
[2020-05-17] MEDS ORDERED: FAMOTIDINE 20 MG TABLET PO SCH (10:00)
[2020-05-17 11:56] LABS: CREATINE KINASE MB 2.58 ng/mL (<4.55); TROPONIN I 0.203 ng/mL
[2020-05-17] MEDS ORDERED: MECLIZINE HCL 25 MG TABLET PO PRN (12:11)
[2020-05-17] MEDS ORDERED: POLYETHYLENE GLYCOL 3350 POWDER 17 GM/1 PACKET PO PRN (12:11)
[2020-05-17] MEDS ORDERED: CLONIDINE HCL 0.1 MG TABLET PO PRN (12:11)
[2020-05-17] MEDS ORDERED: TRAZODONE HCL 50 MG TABLET PO PRN (12:16)
[2020-05-17] MEDS: PANTOPRAZOLE SODIUM 40 MG TABLET.DR PO SCH (13:47)
[2020-05-17] MEDS: VALACYCLOVIR HCL 500 MG TABLET PO SCH (13:47)
[2020-05-17] MEDS: FOLIC ACID 1 MG TABLET PO SCH (13:47)
--- NOTE | 2020-05-17 16:20 | EKG REPORT ---
SEVERITY:- ABNORMAL ECG - SINUS RHYTHM ATRIAL PREMATURE COMPLEX PROBABLE INFERIOR INFARCT, AGE INDETERMINATE CONSIDER ANTERIOR INFARCT : Confirmed by: Lexa Salcedo MD 17-May-2020 16:19:29
--- NOTE | 2020-05-17 16:50 | PDOC PROGRESS REPORT ---
Subjective Progress Note for:: 05/17/20 Subjective:: Patient blood pressure is still quite variable. She continues to complain about foot pain. There is not quite clear if this is a neuropathy versus a sciatica or piriformis-like syndrome. She was getting physical therapy as an outpatient and certainly we will recommend that she continue this. She had chest discomfort and her troponin did peak at 0.24 but is trending down[address] Chavis is seeing the patient as well. Additionally she has a history of constipation with bad hemorrhoids as well as a prolapsed bladder. This certainly could be part of the multitude of medical issues that plague her. Reason For Visit: CHEST PAIN, POSITIVE TROPONIN Physical Exam Vital Signs: Temp Pulse Resp BP Pulse Ox 97.7 F 67 18 137/68 H 100 05/17/20 11:04 05/17/20 14:00 05/17/20 11:04 05/17/20 11:04 05/17/20 11:04 Intake & Output 05/16/20 05/17/20 05/18/20 06:59 06:59 06:59 Intake Total 1999 Balance 1999 Weight 71.4 kg General appearance: PRESENT: cooperative, mild distress, well-developed Head exam: PRESENT: atraumatic, normocephalic Ear exam: PRESENT: normal external ear exam. ABSENT: bleeding, drainage Respiratory exam: PRESENT: clear to auscultation brian, symmetrical, unlabored. ABSENT: rales, rhonchi, tachypnea, wheezes Cardiovascular exam: PRESENT: RRR, +S1, +S2. ABSENT: diastolic murmur, irreg ular rhythm, systolic murmur GI/Abdominal exam: PRESENT: normal bowel sounds, soft. ABSENT: distended, guarding, tenderness Rectal exam: PRESENT: deferred Gentrourinary exam: ABSENT: indwelling catheter Extremities exam: ABSENT: pedal edema Musculoskeletal exam: PRESENT: normal inspection. ABSENT: dislocation Neurological exam: PRESENT: alert, awake, oriented to person, oriented to place, oriented to time, oriented to situation, CN II-XII grossly intact Psychiatric exam: PRESENT: anxious, appropriate affect. ABSENT: agitated Focused psych exam: ABSENT: delusional, paranoid, restlessness Skin exam: PRESENT: dry, normal color, warm. ABSENT: cyanosis - Despite great notes toes are not discolored, erythema, rash Results Laboratory Results: 05/16/20 23:53 05/16/20 23:53 05/16/20 05/16/20 05/16/20 22:53 22:53 23:44 WBC 12.2 H RBC 3.56 L Hgb 13.1 Hct 37.3 MCV 105 H MCH 37.0 H MCHC 35.3 RDW 17.1 H Plt Count 319 Seg Neutrophils % Not Reportable Sodium 123.4 L Potassium 4.8 Chloride 93 L Carbon Dioxide 22 Anion Gap 8 BUN 21 H Creatinine 0.98 Est GFR ( Amer) > 60 Est GFR (Non-Af Amer) Glucose 108 Calcium 10.0 Magnesium Total Bilirubin 0.4 AST 29 Alkaline Phosphatase 78 Total Protein 6.9 Albumin 4.4 Lipase 196.5 Urine Color STRAW Urine Appearance CLEAR Urine pH 8.0 Ur Specific [place] 1.006 Urine Protein NEGATIVE Urine Glucose (UA) NEGATIVE Urine Ketones NEGATIVE Urine Blood SMALL H Urine Nitrite NEGATIVE Ur Leukocyte Esterase MODERATE H Urine WBC (Auto) 4 Urine RBC (Auto) 1 05/16/20 05/16/20 23:53 23:53 WBC Cancelled RBC Cancelled Hgb Cancelled Hct Cancelled MCV Cancelled MCH Cancelled MCHC Cancelled RDW Cancelled Plt Count Cancelled Seg Neutrophils % Cancelled Sodium Cancelled Potassium Cancelled Chloride Cancelled Carbon Dioxide Cancelled Anion Gap Cancelled BUN Cancelled Creatinine Cancelled Est GFR ( Amer) Cancelled Est GFR (Non-Af Amer) Cancelled Glucose Cancelled Calcium Cancelled Magnesium 1.9 Total Bilirubin Cancelled AST Cancelled Alkaline Phosphatase Cancelled Total Protein Cancelled Albumin Cancelled Lipase Cancelled Urine Color Urine Appearance Urine pH Ur Specific [place] Urine Protein Urine Glucose (UA) Urine Ketones Urine Blood Urine Nitrite Ur Leukocyte Esterase Urine WBC (Auto) Urine RBC (Auto) 05/16/20 05/17/20 05/17/20 23:53 08:59 08:59 Creatine Kinase 95 CK-MB (CK-2) 2.88 Troponin I < 0.012 0.246 05/17/20 05/17/20 11:06 11:06 Creatine Kinase 99 CK-MB (CK-2) 2.58 Troponin I 0.203 Impressions: Abdomen/Pelvis CT 05/17/20 00:51 IMPRESSION: No acute intra-abdominal/pelvic process. Colonic diverticulosis without CT evidence for diverticulitis. TECHNICAL DOCUMENTATION: Quality ID # 436: Final reports with documentation of one or more dose reduction techniques (e.g., Automated exposure control, adjustment of the mA and/or kV according to patient size, use of iterative reconstruction technique) copyright 2010 [employer]- All Rights Reserved Chest X-Ray 05/17/20 00:54 IMPRESSION: No acute cardiopulmonary process copyright 2010 [employer]- All Rights Reserved Assessment and Plan - Diagnosis (1) Epigastric abdominal pain Is this a current diagnosis for this admission?: Yes Plan: The patient was also complaining about substernal discomfort. In light of the positive troponin this is possibly an atypical cardiac presentation. She is already on aspirin daily, Coreg, amlodipine and lisinopril. She is also on a proton pump inhibitor. She does take prednisone daily and so a GI source of so me discomfort is likely. (2) Hyponatremia Is this a current diagnosis for this admission?: Yes Plan: This is been a recurrent issue ever since she was given desmopressin. Unfortunately she has not had a consistent course. Sodium is improved. She in fact is on sodium bicarbonate. (3) Constipation Qualifiers: Constipation type: unspecified constipation type Qualified Code(s): K59.00 - Constipation, unspecified Is this a current diagnosis for this admission?: Yes Plan: This is been a chronic problem. We will likely institute changes that she may carry on as an outpatient. (4) Hypertensive emergency Is this a current diagnosis for this admission?: Yes Plan: Systolic blood pressure on admission was 191. Hard to know of her current blood pressure regimen is adequate or if the blood pressure spiked to because of her other symptoms. We will continue to monitor and adjust medications. Goal with the systolic less than 140. (5) Raynaud's syndrome Qualifiers: Raynaud?s-associated gangrene presence: without gangrene Qualified Code(s): I73.00 - Raynaud's syndrome without gangrene Is this a current diagnosis for this admission?: Yes Plan: Currently not on a calcium channel nancy or nitrates for that matter. Currently no discoloration. 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 (7) Hypothyroidism Qualifiers: Hypothyroidism type: unspecified Qualified Code(s): E03.9 - Hypothyroidism, unspecified Is this a current diagnosis for this admission?: Yes Plan: TSH is normal. Free T3 is 2.03 with lower limit of normal of 2.77. Continue 75 mcg of levothyroxine at this time. (8) Gout Qualifiers: Gout site: foot Encounter type: initial encounter Chronicity: chronic Presence of tophus: without tophus Is this a current diagnosis for this admission?: Yes Plan: Uric acid was not checked. We will continue allopurinol. Difficult to tell how much of her joint discomfort is related to gout versus rheumatoid arthritis. C ontinue to monitor. In addition to allopurinol she is on prednisone daily for her rheumatoid arthritis. (9) Rheumatoid arthritis Qualifiers: Rheumatoid arthritis location: multiple sites Rheumatoid factor presence: unspecified presence Qualified Code(s): M06.9 - Rheumatoid arthritis, unspecified Is this a current diagnosis for this admission?: Yes Plan: Continue methotrexate, prednisone and folic acid. - Plan Summary Summary: The patient was admitted to observation status in telemetry bed where she will receive routine supportive and symptomatic cares. Serial cardiac enzymes will be obtained. She will receive Ativan 1 mg IV every 4 hours as needed anxiety or restlessness. She will be initially treated with IV normal saline at 167 mL/h x 12 hours. CBCs, metabolic profiles and magnesium levels as well as other laboratory and/or radiographic evaluations will be obtained as appropriate. A thyroid profile will be obtained. Patient's medications will be reviewed for any agents which may be contributing to her chronic hyponatremia. She was placed on a cardiac diet. - Time Time Spent with patient: 15-24 minutes Medications reviewed and adjusted accordingly: Yes Anticipated discharge: Home, Home with Homehealth
[2020-05-17 18:43] LABS: CREATINE KINASE MB 2.31 ng/mL (<4.55); TROPONIN I 0.153 ng/mL
[2020-05-17] MEDS: GABAPENTIN 100 MG CAPSULE PO SCH (21:32)
[2020-05-17] MEDS: ALLOPURINOL 100 MG TABLET PO SCH (21:33)
[2020-05-17] MEDS: ATORVASTATIN CALCIUM 40 MG TABLET PO SCH (21:33)
[2020-05-17] MEDS: LISINOPRIL 10 MG TABLET PO SCH (21:33)
[2020-05-17] MEDS: MELATONIN 5 MG TABLET PO PRN (21:34)
[2020-05-17] MEDS ORDERED: CARVEDILOL 12.5 MG TABLET PO SCH (22:00)
[2020-05-17] MEDS ORDERED: AMLODIPINE BESYLATE 2.5 MG TABLET PO SCH (22:00)
--- NOTE | 2020-05-17 22:42 | PDOC CONSULTATION ---
Consultation-Blank Consultation: CARDIOLOGY CONSULTATION by Dr. Angelique Helm on 05/17/2020. Patient seen at 11 AM. 60 minutes spent as patient more than 50% of time spent in direct patient care. REASON FOR CONSULTATION: Non-STEMI. Consult Requesting PHYSICIAN: Dr. Whitney persaud hospitalist physician group HISTORY OF PRESENT ILLNESS: Patient is 79-year-old female with known history of significant rheumatoid arthritis, hypertension who states since the past few days she has been having labile hypertension and has taken several doses of clonidine. She states that she started having severe fatigue and generalized weakness and also constipation and epigastric discomfort and came into the emergency room. She also has been having some episodes of chest pain which is at rest. And she states it last for some time but not able to quantitate exactly how long. She states that the pressure which is a chest pain symptoms is in the epigastric and lower middle of the chest, but also states that it is more when she lies down and it is less when she sits up. There is no acute EKG changes noted on the monitor in terms of ST segment elevation or depression. She claims to have a history of rainouts phenomena and states that her feet turn white and red and sometimes purple if exposed to extreme cold. She also states she has mild chronic kidney disease. She denies any history of NV in the past. There is no history of congestive heart failure. Her EKG shows no acute changes but the patient's troponin I is elevated. In view of the patient's history of rainouts phenomena and also the patient intermittent chest pain and with a rising troponin I has presumed that the patient has a non-ST elevation NV. The trend the troponins are trending down. In view of this would recommend stopping the patient beta-nancy and starting the patient on Cardizem since the patient's LV function is normal. There is no severe pulmonary hypertension on the echocardiographic report of which is below. She has no palpitations or syncope. Past Medical History Cardiac Medical History: Reports: Hyperlipidema, Hypertension Pulmonary Medical History: Denies: Asthma, Chronic Obstructive Pulmonary Disease (COPD) EENT Medical History: Denies: Cataracts, Ears - Hearing aids Neurological Medical History: Reports: Seizures - Hyponatremic seizure, Other - Raynaud's syndrome affecting the bilateral feet and lower extremities Denies: Hemorrhagic CVA, Ischemic CVA Endocrine Medical History: Reports: Hypothyroidism Denies: Diabetes Mellitus Type 1, Diabetes Mellitus Type 2, Hyperthyroidism Renal/ Medical History: Reports: Chronic Kidney Disease Denies: Nephrolithiasis Malignancy Medical History: Reports: None GI Medical History: Reports: Gastroesophageal Reflux Disease Denies: Cirrhosis, Hepatitis, Peptic Ulcer Disease Musculoskeltal Medical History: Reports: Arthritis - Rheumatoid arthritis affecting numerous joints, Gout - Bilateral feet and toes Skin Medical History: Reports: Other - Recurrent vesicular dermatitis, requiring continuous antiviral therapy Denies: Eczema, Psoriasis Psychiatric Medical History: Denies: Alcohol Dependency, Depression, Substance Abuse, Tobacco Dependency Traumatic Medical History: Reports: None Hematology: Denies: Anemia, Bleeding Tendencies Infectious Medical History: Reports: None Past Surgical History Past Surgical History: Reports: None Social History Information Source: Patient Lives with: Alone Smoking Status: Former Smoker Electronic Cigarette use?: No Frequency of Alcohol Use: None Hx Recreational Drug Use: No Drugs: None Hx Prescription Drug Abuse: No - Advance Directive Resuscitation Status: Full Code Surrogate healthcare decision maker:: Mireya Medrano, which is her daughter. But to me she states that she has a DNR written. Will recheck with the patient. Family History Family History: denies: CAD, DM, Hypertension, Malignancy Parental Family History Reviewed: Yes Children Family History Reviewed: No Sibling(s) Family History Reviewed.: Yes Medication/Allergy Home Medications: Allopurinol [Zyloprim 100 mg Tablet] 200 mg PO DAILY 06/18/19 Aspirin [Adult Low Dose Aspirin EC] 81 mg PO QPM 06/18/19 Calcium Carbonate/Vitamin D3 [Calcium 600 + Vit D Tablet] 1 each PO DAILY 06/18/19 Carvedilol [Coreg 12.5 mg Tablet] 25 mg PO BID 06/18/19 Cyanocobalamin (Vitamin B-12) [B-12] 5,000 mcg PO DAILY 06/18/19 Docusate Sodium [Colace 100 mg Capsule] 100 mg PO BID 06/18/19 Enalapril Maleate [Vasotec 20 mg Tablet] 40 mg PO BID 06/18/19 Esomeprazole Magnesium [Nexium] 20 mg PO QAM 06/18/19 Eszopiclone [Lunesta] 3 mg PO QPMP PRN 06/18/19 Flaxseed Oil [Flaxseed] 1,000 mg PO DAILY 06/18/19 Folic Acid [Folvite 1 mg Tablet] 1 mg PO QAM 06/18/19 Gabapentin [Neurontin 100 mg Capsule] 300 mg PO QHS 06/18/19 Inulin/Chromium Picolinate [Fiber Gummies] 2 ea PO DAILY 06/18/19 Levothyroxine Sodium 75 mcg PO QAM 06/18/19 Meclizine HCl [Motion Relief] 25 mg PO DAILYP PRN 06/18/19 Multivitamin [Tab-A-Behzad (Multiple Vitamin) Tablet] 2 tab PO DAILY 06/18/19 Prednisone 2.5 mg PO QAM 06/18/19 Simvastatin 20 mg PO QPM 06/18/19 Flaxseed Oil [Flaxseed] 1,000 mg PO .DAILY 06/20/19 Valacyclovir HCl [Valtrex 500 Mg Tablet] 500 mg PO DAILY #7 tablet 06/20/19 Allergies/Adverse Reactions: lactose Allergy (Verified 05/17/20 00:16) Review of Systems Constitutional: PRESENT: weakness - Generalized weakness. ABSENT: chills, fever(s) Eyes: ABSENT: visual disturbances, other - Eye pain Ears: ABSENT: hearing changes, other - Ear pain Nose, Mouth, and Throat: ABSENT: headache(s), sore throat Cardiovascular: ABSENT: chest pain, palpitations Respiratory: ABSENT: cough, dyspnea Gastrointestinal: PRESENT: abdominal pain - Epigastric pain, constipation - X 3 to 4 days. ABSENT: diarrhea, nausea, vomiting Genitourinary: ABSENT: dysuria, hematuria Musculoskeletal: ABSENT: back pain, joint swelling Integumentary: ABSENT: pruritus, rash Neurological: ABSENT: confusion, convulsions, focal weakness, memory loss, syncope Psychiatric: ABSENT: anxiety, depression Endocrine: ABSENT: cold intolerance, heat intolerance, polydipsia, polyphagia, polyuria Hematologic/Lymphatic: ABSENT: easy bleeding, easy bruising Allergic/Immunologic: ABSENT: seasonal rhinorrhea Cardiac symptoms as above. LUNGS: Denies shortness of breath. There is no asthma or wheezing she is an ex-smoker. Current Medications Generic Name Dose Route Start Last Admin Trade Name Freq PRN Reason Stop Dose Admin Acetaminophen 650 mg 05/17/20 05:13 Tylenol 325 Mg Tablet PO 06/16/20 05:12 Q4HP PRN For headache, pain or fever Acetaminophen 650 mg 05/18/20 08:00 Tylenol 325 Mg Tablet PO 06/17/20 07:59 QAM [facility] Al Hydrox/Mg Hydrox/Simethicone 30 ml 05/17/20 05:04 Maalox Plus Susp 30 Udcup PO 06/16/20 05:03 Q6HP PRN [facility] Allopurinol 100 mg 05/17/20 22:00 05/17/20 21:33 Zyloprim 100 Mg Tablet PO 06/16/20 21:59 100 mg Q12 JOE Administration Amlodipine Besylate 2.5 mg 05/17/20 22:00 05/17/20 21:35 Norvasc 2.5 Mg Tablet PO 06/16/20 21:59 Not Given QHS [facility] Ascorbic Acid 500 mg 05/18/20 10:00 Vitamin C 500 Mg Tablet PO 06/17/20 09:59 DAILY [facility] Aspirin 81 mg 05/18/20 08:00 Ecotrin 81 Mg Ec Tablet PO 06/17/20 07:59 QAM [facility] Atorvastatin Calcium 40 mg 05/17/20 22:00 05/17/20 21:33 Lipitor 40 Mg Tablet PO 06/16/20 21:59 40 mg QHS [facility] Administration Calcium Carbonate 2 tab 05/18/20 10:00 Caltrate 600-Vit D3 400 Tablet PO 06/17/20 09:59 DAILY [facility] Carvedilol 25 mg 05/17/20 22:00 05/17/20 21:32 Coreg 12.5 Mg Tablet PO 06/16/20 21:59 25 mg Q12 JOE Administration Clonidine 0.1 mg 05/17/20 12:11 Catapres 0.1 Mg Tablet PO 06/16/20 12:10 Q8HP PRN IF BP IS >160/90 Cyanocobalamin 5,000 mcg 05/18/20 10:00 Vitamin B-12 1000 Mcg Tablet SL 06/17/20 09:59 DAILY [facility] Docusate Sodium 100 mg 05/17/20 10:00 05/17/20 17:25 Colace 100 Mg Capsule PO 06/16/20 09:59 100 mg BID JOE Administration Docusate Sodium 100 mg 05/17/20 18:00 05/17/20 17:25 Colace 100 Mg Capsule PO 06/16/20 17:59 Not Given BID [facility] Folic Acid 1 mg 05/17/20 13:00 05/17/20 13:47 Folvite 1 Mg Tablet PO 06/16/20 12:59 1 mg DAILY JOE Administration Gabapentin 300 mg 05/17/20 22:00 05/17/20 21:32 Neurontin 100 Mg Capsule PO 06/16/20 21:59 300 mg QHS JOE Administration Guaifenesin 200 mg 05/17/20 05:13 Robitussin Syrup 200 Mg/10 Ml Ud Cup PO 06/16/20 05:12 Q4HP PRN COUGH Heparin Sodium (Porcine) 5,000 unit 05/17/20 06:00 05/17/20 21:36 Heparin Inj 5,000 Units/Ml 1 Ml Vial SUBCUT 06/16/20 05:59 Not Given Q8 JOE Hydralazine HCl 20 mg 05/17/20 05:13 Apresoline Inj/Pf 20 Mg/1 Ml Sdv IV 06/16/20 05:12 Q4HP PRN Give For Sbp > 160 / Dbp > 100 Lisinopril 20 mg 05/17/20 22:00 05/17/20 21:33 Prinivil 10 Mg Tablet PO 06/16/20 21:59 20 mg Q12 JOE Administration Lorazepam 1 mg 05/17/20 05:13 Ativan Inj 2 Mg/1 Ml Vial IV 05/24/20 05:12 Q4HP PRN ANXIETY/AGITATION Magnesium Hydroxide 30 ml 05/17/20 05:04 Milk Of Magnesia 30 Ml Udcup PO 06/16/20 05:03 HSP PRN FOR CONSTIPATION Meclizine HCl 25 mg 05/17/20 12:11 Antivert 25 Mg Tablet PO 06/16/20 12:10 DAILYP PRN VERTIGO Melatonin 5 mg 05/17/20 05:13 05/17/20 21:34 Melatonin 5 Mg Tablet PO 06/16/20 05:12 5 mg QHS PRN Administration SLEEP OR INSOMNIA Methotrexate 15 mg 05/18/20 10:00 Rheumatrex 2.5 Mg Tablet PO 06/17/20 09:59 TH@1000 JOE Morphine Sulfate 2 mg 05/17/20 05:32 Morphine 10 Mg/Ml Inj IV 05/24/20 05:31 Q2HP PRN PAIN SCALE OF 2 Morphine Sulfate 3 mg 05/17/20 05:32 Morphine 10 Mg/Ml Inj IV 05/24/20 05:31 Q2HP PRN FOR PAIN SCALE 3-4 Morphine Sulfate 4 mg 05/17/20 05:33 Morphine 10 Mg/Ml Inj IV 05/24/20 05:32 Q2HP PRN PAIN SCALE OF 5 Multivitamins 1 tab 05/18/20 10:00 Tab-A-Behzad (Multiple Vitamin) Tablet PO 06/17/20 09:59 DAILY JOE Ondansetron HCl 4 mg 05/17/20 05:04 Zofran Inj/Pf 4 Mg/2 Ml Sdv IV 06/16/20 05:03 Q4HP PRN FOR NAUSEA/VOMITING Pantoprazole Sodium 40 mg 05/17/20 13:00 05/17/20 13:[address] Tablet PO 06/16/20 12:59 40 mg Q6AM JOE Administration Polyethylene Glycol 17 gm 05/17/20 12:11 Miralax Powder 17 Gm/Packet PO 06/16/20 12:10 HSP PRN CONSTIPATION Prednisolone Acetate 1 drop 05/18/20 08:00 Inflamase 1% Oph Susp 5 Ml OD 06/17/20 07:59 QAM JOE Prednisone 2.5 mg 05/18/20 08:00 Deltasone 5 Mg Tablet PO 06/17/20 07:59 QAM JOE Sodium Bicarbonate 1,300 mg 05/17/20 09:00 05/17/20 21:33 Sodium Bicarbonate 650 Mg Tablet PO 06/16/20 08:59 1,300 mg PCHS JOE Administration Sodium Chloride 2.5 ml 05/17/20 06:00 05/17/20 21:35 Saline Flush 2.5 Ml Monoject Prefil Syrin IV 06/16/20 05:59 2.5 ml Q8 JOE Administration Trazodone HCl 50 mg 05/17/20 12:16 Desyrel 50 Mg Tablet PO 06/16/20 12:15 HSP PRN SLEEP OR INSOMNIA MAY REPEAT Valacyclovir HCl 500 mg 05/17/20 13:00 05/17/20 13:47 Valtrex 500 Mg Tablet PO 06/16/20 12:59 500 mg DAILY JOE Administration Discontinued Medications Generic Name Dose Route Start Last Admin Trade Name Freq PRN Reason Stop Dose Admin Famotidine 20 mg 05/17/20 10:00 05/17/20 09:19 Pepcid 20 Mg Tablet PO 06/16/20 09:59 20 mg Q12 JOE Administration Fentanyl Citrate 25 mcg 05/17/20 00:56 05/17/20 01:34 Sublimaze Inj/Pf 100 Mcg/2 Ml Ampule IV 05/17/20 00:57 Not Given ONCE ONE Sodium Chloride 1,000 mls @ 125 mls/hr 05/17/20 02:00 05/17/20 10:39 Nacl 0.9% 1000 Ml Iv Soln IV 05/17/20 09:59 Infused NOW ONE Infusion Sodium Chloride 1,000 mls @ 167 mls/hr 05/17/20 05:10 05/17/20 13:01 Nacl 0.9% 1000 Ml Iv Soln IV 05/17/20 07:59 Infused NOW ONE Infusion Metoprolol Tartrate 5 mg 05/17/20 05:13 Lopressor Inj/Pf 5 Mg/5 Ml Sdv IV 06/16/20 05:12 Q4HP PRN Give For Sbp > 160 / Dbp > 100 Morphine Sulfate 2 - 4 mg 05/17/20 05:13 Morphine 10 Mg/Ml Inj IV 05/24/20 05:12 Q2HP PRN See protocol Protocol Ondansetron HCl 4 mg 05/17/20 00:55 05/17/20 01:34 Zofran Inj/Pf 4 Mg/2 Ml Sdv IV 05/17/20 00:56 Not Given NOW ONE Physical EXAMINATION: The patient is well-built and well-nourished. At present in no acute distress. Selected Entries 05/17/20 11:04 Temperature 97.7 F Temperature Oral Source Pulse Rate 59 L Respiratory 18 Rate Blood Pressure 137/68 H Blood Pressure 91 Mean BP Location Right Arm BP Position Supine O2 Sat by Pulse 100 Oximetry Oxygen Delivery Room Air Method HEAD: Atraumatic, normocephalic. EYES: Pupils equal round and reactive to light, extraocular movements intact, sclera anicteric, conjunctiva are normal. ENT: TMs normal, nares patent, oropharynx clear without exudates. Moist mucous membranes. NECK: Normal range of motion, supple without lymphadenopathy or JVD. Carotids are equal there is no bruits. There is no thyromegaly. There is no accessory muscles of respiration in use. Trachea central LUNGS: Breath sounds clear to auscultation bilaterally and equal. No wheezes rales or rhonchi. On palpation there is no chest wall tenderness. HEART: S1-S2 is heard. S1 is of normal intensity. There is no S3 gallop. There is no S4 gallop. There is systolic murmur left sternal border and apex without radiation. There is no rub.. ABDOMEN: Soft, nontender, normoactive bowel sounds. There is no hepatosplenic megaly no guarding, no rebound. No masses appreciated. EXTREMITIES: Normal range of motion, no pitting or edema. No clubbing or cyanosis. Femorals are well felt. There is no femoral bruits. Leg pulses are well felt. There is no DVT or cellulitis. There is no calf tenderness NEUROLOGICAL: Cranial nerves II through XII grossly intact. Normal speech, normal gait. The patient is awake alert oriented x3 with no focal deficits. PSYCH: Normal mood, normal affect. The patient judgment and insight are intact SKIN: Warm, Dry, normal turgor, no rashes or lesions noted. There is no petechia or ecchymosis, The patient serial EKG shows sinus rhythm. Q waves in the inferior leads. And poor R wave progression. There is no acute ST segment elevation or depression or significant T wave changes. Labs- Entire Visit 05/16/20 05/16/20 05/16/20 22:53 22:53 23:44 WBC 12.2 H RBC 3.56 L Hgb 13.1 Hct 37.3 MCV 105 H MCH 37.0 H MCHC 35.3 RDW 17.1 H Plt Count 319 Lymph % (Auto) Not Reportable Kern % (Auto) Not Reportable Eos % (Auto) Not Reportable Baso % (Auto) Not Reportable Absolute Neuts (auto) Not Reportable Absolute Lymphs (auto) Not Reportable Absolute Monos (auto) Not Reportable Absolute Eos (auto) Not Reportable Absolute Basos (auto) Not Reportable Total Counted 100 Seg Neutrophils % Not Reportable Seg Neuts % (Manual) 54 Lymphocytes % (Manual) 41 Atypical Lymphs % 1 Monocytes % (Manual) 4 Eosinophils % (Manual) 0 Basophils % (Manual) 0 Abs Neuts (Manual) 6.6 Abs Lymphs (Manual) 5.1 H Abs Monocytes (Manual) 0.5 Absolute Eos (Manual) 0.0 Abs Basophils (Manual) 0.0 Toxic Granulation SLIGHT Platelet Estimate Platelet Comment ADEQUATE Anisocytosis 1+ Macrocytosis 2+ Tear Drop Cells SLIGHT Sodium 123.4 L Potassium 4.8 Chloride 93 L Carbon Dioxide 22 Anion Gap 8 BUN 21 H Creatinine 0.98 Est GFR ( Amer) > 60 Est GFR (Non-Af Amer) Est GFR (MDRD) Non-Af 55 L Glucose 108 Calcium 10.0 Magnesium Total Bilirubin 0.4 Direct Bilirubin 0.0 Neonat Total Bilirubin Not Reportable Neonat Direct Bilirubin Not Reportable Neonat Indirect Bili Not Reportable AST 29 ALT 13 Alkaline Phosphatase 78 Creatine Kinase CK-MB (CK-2) Troponin I Total Protein 6.9 Albumin 4.4 Lipase 196.5 EGFR Urine Color STRAW Urine Appearance CLEAR Urine pH 8.0 Ur Specific Watson 1.006 Urine Protein NEGATIVE Urine Glucose (UA) NEGATIVE Urine Ketones NEGATIVE Urine Blood SMALL H Urine Nitrite NEGATIVE Urine Bilirubin NEGATIVE Urine Urobilinogen NEGATIVE Ur Leukocyte Esterase MODERATE H Urine WBC (Auto) 4 Urine RBC (Auto) 1 Squamous Epi Cells Auto 1 Urine Mucus (Auto) RARE Urine Ascorbic Acid NEGATIVE Slides for Path Review 05/16/20 05/16/20 05/16/20 23:53 23:53 23:53 WBC Cancelled RBC Cancelled Hgb Cancelled Hct Cancelled MCV Cancelled MCH Cancelled MCHC Cancelled RDW Cancelled Plt Count Cancelled Lymph % (Auto) Cancelled Kern % (Auto) Cancelled Eos % (Auto) Cancelled Baso % (Auto) Cancelled Absolute Neuts (auto) Cancelled Absolute Lymphs (auto) Cancelled Absolute Monos (auto) Cancelled Absolute Eos (auto) Cancelled Absolute Basos (auto) Cancelled Total Counted Seg Neutrophils % Cancelled Seg Neuts % (Manual) Lymphocytes % (Manual) Atypical Lymphs % Monocytes % (Manual) Eosinophils % (Manual) Basophils % (Manual) Abs Neuts (Manual) Abs Lymphs (Manual) Abs Monocytes (Manual) Absolute Eos (Manual) Abs Basophils (Manual) Toxic Granulation Platelet Estimate Cancelled Platelet Comment Anisocytosis Macrocytosis Tear Drop Cells Sodium Cancelled Potassium Cancelled Chloride Cancelled Carbon Dioxide Cancelled Anion Gap Cancelled BUN Cancelled Creatinine Cancelled Est GFR ( Amer) Cancelled Est GFR (Non-Af Amer) Cancelled Est GFR (MDRD) Non-Af Cancelled Glucose Cancelled Calcium Cancelled Magnesium 1.9 Total Bilirubin Cancelled Direct Bilirubin Cancelled Neonat Total Bilirubin Cancelled Neonat Direct Bilirubin Cancelled Neonat Indirect Bili Cancelled AST Cancelled ALT Cancelled Alkaline Phosphatase Cancelled Creatine Kinase CK-MB (CK-2) Troponin I < 0.012 Total Protein Cancelled Albumin Cancelled Lipase Cancelled EGFR Cancelled Urine Color Urine Appearance Urine pH Ur Specific Watson Urine Protein Urine Glucose (UA) Urine Ketones Urine Blood Urine Nitrite Urine Bilirubin Urine Urobilinogen Ur Leukocyte Esterase Urine WBC (Auto) Urine RBC (Auto) Squamous Epi Cells Auto Urine Mucus (Auto) Urine Ascorbic Acid Slides for Path Review Cancelled 05/17/20 05/17/20 05/17/20 08:59 08:59 11:06 WBC RBC Hgb Hct MCV MCH MCHC RDW Plt Count Lymph % (Auto) Kern % (Auto) Eos % (Auto) Baso % (Auto) Absolute Neuts (auto) Absolute Lymphs (auto) Absolute Monos (auto) Absolute Eos (auto) Absolute Basos (auto) Total Counted Seg Neutrophils % Seg Neuts % (Manual) Lymphocytes % (Manual) Atypical Lymphs % Monocytes % (Manual) Eosinophils % (Manual) Basophils % (Manual) Abs Neuts (Manual) Abs Lymphs (Manual) Abs Monocytes (Manual) Absolute Eos (Manual) Abs Basophils (Manual) Toxic Granulation Platelet Estimate Platelet Comment Anisocytosis Macrocytosis Tear Drop Cells Sodium Potassium Chloride Carbon Dioxide Anion Gap BUN Creatinine Est GFR ( Amer) Est GFR (Non-Af Amer) Est GFR (MDRD) Non-Af Glucose Calcium Magnesium Total Bilirubin Direct Bilirubin Neonat Total Bilirubin Neonat Direct Bilirubin Neonat Indirect Bili AST ALT Alkaline Phosphatase Creatine Kinase 95 99 CK-MB (CK-2) 2.88 Troponin I 0.246 Total Protein Albumin Lipase EGFR Urine Color Urine Appearance Urine pH Ur Specific Watson Urine Protein Urine Glucose (UA) Urine Ketones Urine Blood Urine Nitrite Urine Bilirubin Urine Urobilinogen Ur Leukocyte Esterase Urine WBC (Auto) Urine RBC (Auto) Squamous Epi Cells Auto Urine Mucus (Auto) Urine Ascorbic Acid Slides for Path Review 05/17/20 05/17/20 05/17/20 11:06 17:31 17:31 WBC RBC Hgb Hct MCV MCH MCHC RDW Plt Count Lymph % (Auto) Kern % (Auto) Eos % (Auto) Baso % (Auto) Absolute Neuts (auto) Absolute Lymphs (auto) Absolute Monos (auto) Absolute Eos (auto) Absolute Basos (auto) Total Counted Seg Neutrophils % Seg Neuts % (Manual) Lymphocytes % (Manual) Atypical Lymphs % Monocytes % (Manual) Eosinophils % (Manual) Basophils % (Manual) Abs Neuts (Manual) Abs Lymphs (Manual) Abs Monocytes (Manual) Absolute Eos (Manual) Abs Basophils (Manual) Toxic Granulation Platelet Estimate Platelet Comment Anisocytosis Macrocytosis Tear Drop Cells Sodium Potassium Chloride Carbon Dioxide Anion Gap BUN Creatinine Est GFR ( Amer) Est GFR (Non-Af Amer) Est GFR (MDRD) Non-Af Glucose Calcium Magnesium Total Bilirubin Direct Bilirubin Neonat Total Bilirubin Neonat Direct Bilirubin Neonat Indirect Bili AST ALT Alkaline Phosphatase Creatine Kinase 93 CK-MB (CK-2) 2.58 2.31 Troponin I 0.203 0.153 Total Protein Albumin Lipase EGFR Urine Color Urine Appearance Urine pH Ur Specific Watson Urine Protein Urine Glucose (UA) Urine Ketones Urine Blood Urine Nitrite Urine Bilirubin Urine Urobilinogen Ur Leukocyte Esterase Urine WBC (Auto) Urine RBC (Auto) Squamous Epi Cells Auto Urine Mucus (Auto) Urine Ascorbic Acid Slides for Path Review Abdomen/Pelvis CT 05/17/20 00:51 IMPRESSION: No acute intra-abdominal/pelvic process. Colonic diverticulosis without CT evidence for diverticulitis. TECHNICAL DOCUMENTATION: Quality ID # [id number]: Final reports with documentation of one or more dose reduction techniques (e.g., Automated exposure control, adjustment of the mA and/or kV according to patient size, use of iterative reconstruction technique) copyright 2011 [employer]- All Rights Reserved Chest X-Ray 05/17/20 00:54 IMPRESSION: No acute cardiopulmonary process ECHOCARDIOGRAM. The left ventricle is normal in size. There is normal left ventricular wall thickness. LV EF is 70% Left ventricular systolic function is normal. Doppler measurements suggest impaired left ventricular relaxation, which is associated with grade I/IV or mild diastolic dysfunction The left ventricular wall motion is normal. There is no thrombus. No ASD,VSD,or PFO seen. The right ventricle is normal in size and function. The right ventricle is not well visualized secondary to technical limitations The right atrium is normal in size The left atrial size is normal. There is mild mitral annular calcification. There is no evidence of mitral valve prolapse. There is no vegetation seen on the mitral valve. There is no mitral valve stenosis. There is a mild amount of mitral regurgitation There is no aortic valvular vegetation. There is no aortic valve stenosis There is no LVOT obstruction. No aortic regurgitation is present. There is no tricuspid stenosis. There is a trace to mild amount of tricuspid regurgitation There is mild pulmonary hypertension by echo RVSP is 36 to 41 mm of Hg , with RA mean of 10 to 15. There is no pulmonic valvular stenosis. There is no pulmonic valvular regurgitation. The aortic root is normal size. The inferior vena cava appeared normal and decreased < 50% with respiration (RAP 10-15 mmHg) There is no pericardial effusion. Impression/RECOMMENDATION: 1. Non-ST elevation NV: This is to be resumed since the patient does have chest pain although atypical and the troponin is rising and is now trending down. Would recommend getting a IV Lexiscan Cardiolite stress test on Friday. The patient's echocardiogram shows no wall motion abnormality and normal LV ejection fraction. 2. Raynaud's phenomena: By history. Strongly recommend stopping the patient's Coreg and is switching the patient to a calcium channel nancy. 3. Rheumatoid arthritis: Recommend checking a sed rate, and CRP to see if this is in remission 4. Hypertension: Continue antihypertensives. 5. Hypothyroidism: Continue thyroid replacement. 7. Hyponatremia:? SIADH. The patient in the past has had a bad reaction to d esmopressin and had seizures secondary to hyponatremia. 8. GERD: Continue proton pump inhibitors. EKG reviewed. Medication change medical management and medical regimen discussed with attending provider on the case. Medical decision making is of high complexity. 60 minutes spent as patient more than 50% time spent in direct patient care. Will follow.
--- NOTE | 2020-05-17 22:51 | XCELERA REPORT ---
[address] [address] Transthoracic Echocardiogram Report Name: JUAN ANTONIO JONES Age: 79 yrs Gender: Female : 1940 Patient Status: Inpatient Patient Location: [facility]^A Study Date: 05/17/2020 02:04 PM Height: 65 in Weight: 157 lb BSA: 1.8 m2 Procedure: A two-dimensional transthoracic echocardiogram with color flow and Doppler was performed. Study Quality: Fair. Reason For Study: NSTEMI History: NSTEMI. Ordering Physician: KIRAN SHAH Performed By: Freddy Hansen Interpretation Summary The left ventricle is normal in size. There is normal left ventricular wall thickness. LV EF is 70% Left ventricular systolic function is normal. Doppler measurements suggest impaired left ventricular relaxation, which is associated with grade I/IV or mild diastolic dysfunction The left ventricular wall motion is normal. There is no thrombus. No ASD,VSD,or PFO seen. The right ventricle is normal in size and function. The right ventricle is not well visualized secondary to technical limitations The right atrium is normal in size The left atrial size is normal. There is mild mitral annular calcification. There is no evidence of mitral valve prolapse. There is no vegetation seen on the mitral valve. There is no mitral valve stenosis. There is a mild amount of mitral regurgitation There is no aortic valvular vegetation. There is no aortic valve stenosis There is no LVOT obstruction. No aortic regurgitation is present. There is no tricuspid stenosis. There is a trace to mild amount of tricuspid regurgitation There is mild pulmonary hypertension by echo RVSP is 36 to 41 mm of Hg , with RA mean of 10 to 15. There is no pulmonic valvular stenosis. There is no pulmonic valvular regurgitation. The aortic root is normal size. The inferior vena cava appeared normal and decreased < 50% with respiration (RAP 10-15 mmHg) There is no pericardial effusion. MMode/2D Measurements & Calculations RVDd: 2.6 cm LVIDd: 4.6 cm FS: 46.5 % Ao root diam: 2.7 cm IVSd: 0.70 cm LVIDs: 2.4 cm EDV(Teich): 95.5 ml Ao root area: 5.7 cm2 LVPWd: 0.84 cm ESV(Teich): 21.0 ml LA dimension: 3.9 cm EF(Teich): 78.0 % Doppler Measurements & Calculations MV E max dena: MV P1/2t max dena: Ao V2 max: LV V1 max P.1 cm/sec 107.2 cm/sec 148.6 cm/sec 5.4 mmHg MV A max dena: MV P1/2t: 65.4 msec Ao max P.8 mmHgLV V1 max: 142.6 cm/sec MVA(P1/2t): 3.4 cm2 115.7 cm/sec MV E/A: 0.72 MV dec slope: LV dP/dt: 2272 mmHg/s 480.3 cm/sec2 MV dec time: 0.27 sec PA V2 max: TR max dena: MV P1/2t-pr_phl: 86.4 cm/sec 254.1 cm/sec 65.4 msec PA max P.0 mmHgTR max P.8 mmHg Left Ventricle The left ventricle is normal in size. There is normal left ventricular wall thickness. LV EF is 70%. Left ventricular systolic function is normal. Doppler measurements suggest impaired left ventricular relaxation, which is associated with grade I/IV or mild diastolic dysfunction. The left ventricular wall motion is normal. There is no thrombus. No ASD,VSD,or PFO seen. Right Ventricle The right ventricle is normal in size and function. The right ventricle is not well visualized secondary to technical limitations. Atria The right atrium is normal in size. The left atrial size is normal. Mitral Valve There is mild mitral annular calcification. There is no evidence of mitral valve prolapse. There is no vegetation seen on the mitral valve. There is no mitral valve stenosis. There is a mild amount of mitral regurgitation. Aortic Valve There is no aortic valvular vegetation. There is no aortic valve stenosis. There is no LVOT obstruction. No aortic regurgitation is present. Tricuspid Valve There is no tricuspid stenosis. There is a trace to mild amount of tricuspid regurgitation. There is mild pulmonary hypertension by echo. RVSP is 36 to 41 mm of Hg , with RA mean of 10 to 15. Pulmonic Valve There is no pulmonic valvular stenosis. There is no pulmonic valvular regurgitation. Great Vessels The aortic root is normal size. The inferior vena cava appeared normal and decreased < 50% with respiration (RAP 10-15 mmHg). Effusions There is no pericardial effusion. : KIRAN SHAH Lakshmi
[2020-05-18] MEDS: HEPARIN SOD (PORCINE) 5,000 UNIT/ML 1 ML VIAL SUBCUT SCH ×3 (05:33→22:08)
[2020-05-18] MEDS: PANTOPRAZOLE SODIUM 40 MG TABLET.DR PO SCH (05:38)
[2020-05-18 05:47] LABS: HEMATOCRIT 32.7 % (36.0-47.0); HEMOGLOBIN 11.3 g/dL (12.0-15.5); MEAN CORPUSCULAR HEMOGLOBIN 36.9 pg (27.0-33.4); MEAN CORPUSCULAR HGB CONC 34.6 g/dL (32.0-36.0); MEAN CORPUSCULAR VOLUME 106 fl (80-97); PLATELET COUNT 219 10^3/uL (150-450); RED BLOOD COUNT 3.07 10^6/uL (3.72-5.28); RED CELL DISTRIBUTION WIDTH 17.2 % (11.5-14.0); WHITE BLOOD COUNT 7.8 10^3/uL (4.0-10.5)
[2020-05-18 06:23] LABS: ANION GAP 5 (5-19); BLOOD UREA NITROGEN 19 mg/dL (7-20); CALCIUM 8.9 mg/dL (8.4-10.2); CARBON DIOXIDE 24 mmol/L (22-30); CHLORIDE 101 mmol/L (98-107); GLUCOSE 102 mg/dL (75-110); POTASSIUM 4.3 mmol/L (3.6-5.0)
[2020-05-18 06:30] LABS: FREE T3 2.07 pg/mL (2.77-5.27)
[2020-05-18] MEDS ORDERED: PREDNISONE 2.5 MG PO SCH (08:00)
[2020-05-18] MEDS ORDERED: (PENDING PHARMACY ID) (Acetaminophen [Acetaminophen Extra Strength] 500 MG) PO SCH (08:00)
[2020-05-18] MEDS: CALCIUM CARBONATE 600 MG/VITAMIN D3 400 UNIT TABLET PO SCH (09:37)
[2020-05-18] MEDS: DILTIAZEM HCL 120 MG CAP.SR.24H PO SCH ×2 (09:37→22:11)
[2020-05-18] MEDS: ALLOPURINOL 100 MG TABLET PO SCH ×2 (09:38→22:11)
[2020-05-18] MEDS: ACETAMINOPHEN 325 MG TABLET PO SCH (09:38)
[2020-05-18] MEDS: ASPIRIN 81 MG TABLET, ENT COATED PO SCH (09:39)
[2020-05-18] MEDS: LISINOPRIL 10 MG TABLET PO SCH ×2 (09:39→22:12)
[2020-05-18] MEDS: SODIUM BICARBONATE 650 MG TABLET PO SCH ×4 (09:39→22:11)
[2020-05-18] MEDS: ASCORBIC ACID 500 MG TABLET PO SCH (09:39)
[2020-05-18] MEDS: FOLIC ACID 1 MG TABLET PO SCH (09:39)
[2020-05-18] MEDS: MULTIVITAMIN TABLET PO SCH (09:39)
[2020-05-18] MEDS: CYANOCOBALAMIN (VITAMIN B-12) 1,000 MCG TABLET SL SCH (09:39)
[2020-05-18] MEDS: DOCUSATE SODIUM 100 MG CAPSULE PO SCH ×2 (09:39→17:25)
[2020-05-18] MEDS: PREDNISOLONE ACETATE 1% OPH SUSP 5 ML OD SCH (09:40)
[2020-05-18] MEDS: PREDNISONE 5 MG TABLET PO SCH (09:40)
[2020-05-18] MEDS: VALACYCLOVIR HCL 500 MG TABLET PO SCH (09:41)
[2020-05-18] MEDS ORDERED: CYANOCOBALAMIN 5000 MCG SL SCH (10:00)
[2020-05-18] MEDS ORDERED: METHOTREXATE SODIUM 2.5 MG TABLET PO SCH (10:00)
[2020-05-18] MEDS ORDERED: MULTIVITAMIN PO SCH (10:00)
[2020-05-18] MEDS ORDERED: (PENDING PHARMACY ID) (Ascorbate Calcium [Vitamin C] 500 MG) PO SCH (10:00)
--- NOTE | 2020-05-18 10:22 | Progress Note ---
Provider Note Provider Note: CARDIOLOGY PROGRESS NOTE by Dr. Angelique Helm on 05/18/2020. OBJECTIVE: The patient denies any chest pain or discomfort. There is no shortness of breath there is no PND orthopnea. There is no palpitations. There is no leg edema. The patient's troponin is trending down. There is no TIA CVA symptoms. His sodium is competent 130. PHYSICAL EXAMINATION: The patient is well-built and well-nourished in no acute distress. Selected Entries 05/18/20 09:00 Temperature 100 F Temperature Oral Source Pulse Rate 70 Respiratory 16 Rate Blood Pressure 119/66 [Right Upper Arm] Blood Pressure 83 Mean [Right Upper Arm] Blood Pressure Supine Position [Right Upper Arm] O2 Sat by Pulse 100 Oximetry Oxygen Delivery Room Air Method ( includes room air) HEAD: Atraumatic, normocephalic. EYES: Pupils equal round and reactive to light, extraocular movements intact, sclera anicteric, conjunctiva are normal. ENT: TMs normal, nares patent, oropharynx clear without exudates. Moist mucous membranes. NECK: Normal range of motion, supple without lymphadenopathy or JVD. Carotids are equal there is no bruits. There is no thyromegaly. There is no accessory muscles of respiration in use. Trachea central LUNGS: Breath sounds clear to auscultation bilaterally and equal. No wheezes rales or rhonchi. On palpation there is no chest wall tenderness. HEART: S1-S2 is heard. S1 is of normal intensity. There is no S3 gallop. There is no S4 gallop. There is systolic murmur left sternal border and apex without radiation. There is no rub.. ABDOMEN: Soft, nontender, normoactive bowel sounds. There is no hepatosplenic megaly no guarding, no rebound. No masses appreciated. EXTREMITIES: Normal range of motion, no pitting or edema. No clubbing or cyanosis. Femorals are well felt. There is no femoral bruits. Leg pulses are well felt. There is no DVT or cellulitis. There is no calf tenderness NEUROLOGICAL: Cranial nerves II through XII grossly intact. Normal speech, normal gait. The patient is awake alert oriented x3 with no focal deficits. PSYCH: Normal mood, normal affect. The patient judgment and insight are intact SKIN: Warm, Dry, normal turgor, no rashes or lesions noted. There is no petechia or ecchymosis, Abdomen/Pelvis CT 05/17/20 00:51 IMPRESSION: No acute intra-abdominal/pelvic process. Colonic diverticulosis without CT evidence for diverticulitis. TECHNICAL DOCUMENTATION: Quality ID # 436: Final reports with documentation of one or more dose reduction techniques (e.g., Automated exposure control, adjustment of the mA and/or kV according to patient size, use of iterative reconstruction technique) copyright 2011 [employer]- All Rights Reserved Chest X-Ray 05/17/20 00:54 IMPRESSION: No acute cardiopulmonary process Labs- All tests 24 hr 05/18/20 05/18/20 05/18/20 05:24 05:24 05:24 WBC 7.8 RBC 3.07 L Hgb 11.3 L Hct 32.7 L MCV 106 H MCH 36.9 H MCHC 34.6 RDW 17.2 H Plt Count 219 Sodium 130.1 L Potassium 4.3 Chloride 101 Carbon Dioxide 24 Anion Gap 5 BUN 19 Creatinine 0.96 Est GFR ( Amer) > 60 Est GFR (MDRD) Non-Af 56 L Glucose 102 Calcium 8.9 Magnesium 1.9 Troponin I TSH 4.00 Free T3 pg/mL 2.07 L Rheumatoid Factor 05/18/20 05/18/20 05:24 05:24 WBC RBC Hgb Hct MCV MCH MCHC RDW Plt Count Sodium Potassium Chloride Carbon Dioxide Anion Gap BUN Creatinine Est GFR ( Amer) Est GFR (MDRD) Non-Af Glucose Calcium Magnesium Troponin I 0.088 TSH Free T3 pg/mL Rheumatoid Factor < 8.6 Impression/RECOMMENDATION: 1. Non-ST elevation NH: This is to be resumed since the patient does have chest pain although atypical and the troponin is rising and is now trending down. The patient's echocardiogram shows no wall motion abnormality and normal LV ejection fraction. Patient's troponin is trending down. We will schedule the patient for IV Lexiscan Cardiolite stress test tomorrow. Discussed the procedure, and the benefits and complications of nuclear stress testing with the patient. 2. Raynaud's phenomena: By history. Strongly recommend stopping the patient's Coreg and is switching the patient to a calcium channel nancy. 3. Rheumatoid arthritis: Recommend checking a sed rate, and CRP to see if this is in remission 4. Hypertension: Continue antihypertensives. 5. Hypothyroidism: Continue thyroid replacement. 7. Hyponatremia:? SIADH. The patient in the past has had a bad reaction to desmopressin and had seizures secondary to hyponatremia. 8. GERD: Continue proton pump inhibitors. Medications reviewed. Medical regimen and management plan discussed with the patient and with attending physician. Medical decision making is of high complexity. 40 minutes spent as patient more than 50% of time spent in direct patient care. Will follow
--- NOTE | 2020-05-18 14:35 | PDOC PROGRESS REPORT ---
Subjective Progress Note for:: 05/18/20 Reason For Visit: EPIGASTRIC PAIN, HPONATREMIA, UNCONTROLLED Physical Exam Vital Signs: Temp Pulse Resp BP Pulse Ox 97.5 F 59 L 16 119/54 L 98 05/18/20 11:13 05/18/20 11:13 05/18/20 11:13 05/18/20 11:13 05/18/20 11:13 Intake & Output 05/17/20 05/18/20 05/19/20 06:59 06:59 06:59 Intake Total 2360 1468 Balance 2360 1468 Weight 71.4 kg Results Laboratory Results: 05/18/20 05:24 05/18/20 05:24 05/18/20 05/18/20 05/18/20 05:24 05:24 05:24 WBC 7.8 RBC 3.07 L Hgb 11.3 L Hct 32.7 L MCV 106 H MCH 36.9 H MCHC 34.6 RDW 17.2 H Plt Count 219 Sodium 130.1 L Potassium 4.3 Chloride 101 Carbon Dioxide 24 Anion Gap 5 BUN 19 Creatinine 0.96 Est GFR ( Amer) > 60 Glucose 102 Calcium 8.9 Magnesium 1.9 TSH 4.00 Free T3 pg/mL 2.07 L 05/16/20 05/17/20 05/17/20 23:53 08:59 08:59 Creatine Kinase 95 CK-MB (CK-2) 2.88 Troponin I < 0.012 0.246 05/17/20 05/17/20 05/17/20 11:06 11:06 17:31 Creatine Kinase 99 93 CK-MB (CK-2) 2.58 Troponin I 0.203 05/17/20 05/18/20 17:31 05:24 Creatine Kinase CK-MB (CK-2) 2.31 Troponin I 0.153 0.088 Impressions: Abdomen/Pelvis CT 05/17/20 00:51 IMPRESSION: No acute intra-abdominal/pelvic process. Colonic diverticulosis without CT evidence for diverticulitis. TECHNICAL DOCUMENTATION: Quality ID # 436: Final reports with documentation of one or more dose reduction techniques (e.g., Automated exposure control, adjustment of the mA and/or kV according to patient size, use of iterative reconstruction technique) copyright 2011 [employer]- All Rights Reserved Chest X-Ray 05/17/20 00:54 IMPRESSION: No acute cardiopulmonary process copyright 2011 [employer]- All Rights Reserved Assessment and Plan - Diagnosis (1) Non-ST elevation myocardial infarction (NSTEMI) Is this a current diagnosis for this admission?: Yes Plan: Troponins peaked at 0.24. Trending down. Dr. Chavis is seeing the patient as well. Stress test ordered for tomorrow (2) Epigastric abdominal pain Is this a current diagnosis for this admission?: Yes Plan: Continue PPI (3) Hyponatremia Is this a current diagnosis for this admission?: Yes Plan: Sodium is 130. Continue current regimen and continue to monitor. (4) Constipation Qualifiers: Constipation type: unspecified constipation type Qualified Code(s): K59.00 - Constipation, unspecified Is this a current diagnosis for this admission?: Yes Plan: The patient has a history of hemorrhoids. Will need to modify regimen. (5) Hypertensive emergency Is this a current diagnosis for this admission?: Yes Plan: Blood pressure still labile. Diltiazem initiated and Coreg discontinued for Raynaud's. Amlodipine discontinued. Lisinopril 20 mg twice daily. 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 (8) Rheumatoid arthritis Qualifiers: Rheumatoid arthritis location: multiple sites Rheumatoid factor presence: unspecified presence Qualified Code(s): M06.9 - Rheumatoid arthritis, unspecified Is this a current diagnosis for this admission?: Yes Plan: No changes at this time but encouraged to follow-up with [facility]. Will check sed rate and CRP as well as rheumatoid factor. (9) Hypothyroidism Qualifiers: Hypothyroidism type: unspecified Qualified Code(s): E03.9 - Hypothyroidism, unspecified Is this a current diagnosis for this admission?: Yes Plan: Continue levothyroxine (10) Gout Qualifiers: Gout site: foot Encounter type: initial encounter Chronicity: chronic Presence of tophus: without tophus Is this a current diagnosis for this admission?: Yes Plan: Continue allopurinol - Plan Summary Summary: The patient was admitted to observation status in telemetry bed where she will receive routine supportive and symptomatic cares. Serial cardiac enzymes will be obtained. She will receive Ativan 1 mg IV every 4 hours as needed anxiety or restlessness. She will be initially treated with IV normal saline at 167 mL/h x 12 hours. CBCs, metabolic profiles and magnesium levels as well as other labor atory and/or radiographic evaluations will be obtained as appropriate. A thyroid profile will be obtained. Patient's medications will be reviewed for any agents which may be contributing to her chronic hyponatremia. She was placed on a cardiac diet. - Time Time Spent with patient: 15-24 minutes Medications reviewed and adjusted accordingly: Yes Anticipated discharge: Home, Home with Homehealth
[2020-05-18] MEDS: GABAPENTIN 100 MG CAPSULE PO SCH (22:11)
[2020-05-18] MEDS: ATORVASTATIN CALCIUM 40 MG TABLET PO SCH (22:11)
[2020-05-18] MEDS: MELATONIN 5 MG TABLET PO PRN (22:11)
[2020-05-19] MEDS: HEPARIN SOD (PORCINE) 5,000 UNIT/ML 1 ML VIAL SUBCUT SCH ×2 (05:55→14:26)
[2020-05-19] MEDS: PANTOPRAZOLE SODIUM 40 MG TABLET.DR PO SCH (05:55)
[2020-05-19] MEDS ORDERED: LEVOTHYROXINE SODIUM 0.075 MG TABLET PO SCH (07:00)
[2020-05-19 07:23] LABS: ANION GAP 6 (5-19); BLOOD UREA NITROGEN 21 mg/dL (7-20); CALCIUM 9.4 mg/dL (8.4-10.2); CARBON DIOXIDE 25 mmol/L (22-30); CHLORIDE 100 mmol/L (98-107); GLUCOSE 115 mg/dL (75-110); POTASSIUM 4.5 mmol/L (3.6-5.0)
[2020-05-19] MEDS: LISINOPRIL 10 MG TABLET PO SCH (10:27)
[2020-05-19] MEDS: FOLIC ACID 1 MG TABLET PO SCH (10:27)
[2020-05-19] MEDS: DOCUSATE SODIUM 100 MG CAPSULE PO SCH (10:27)
[2020-05-19] MEDS: ACETAMINOPHEN 325 MG TABLET PO SCH (10:27)
[2020-05-19] MEDS: SODIUM BICARBONATE 650 MG TABLET PO SCH ×2 (10:28→12:26)
[2020-05-19] MEDS: ALLOPURINOL 100 MG TABLET PO SCH (10:28)
[2020-05-19] MEDS: PREDNISOLONE ACETATE 1% OPH SUSP 5 ML OD SCH (10:28)
[2020-05-19] MEDS: ASPIRIN 81 MG TABLET, ENT COATED PO SCH (10:28)
[2020-05-19] MEDS: ASCORBIC ACID 500 MG TABLET PO SCH (10:28)
[2020-05-19] MEDS: MULTIVITAMIN TABLET PO SCH (10:28)
[2020-05-19] MEDS: DILTIAZEM HCL 120 MG CAP.SR.24H PO SCH (10:29)
[2020-05-19] MEDS: VALACYCLOVIR HCL 500 MG TABLET PO SCH (10:29)
[2020-05-19] MEDS: PREDNISONE 5 MG TABLET PO SCH (10:29)
[2020-05-19] MEDS: CALCIUM CARBONATE 600 MG/VITAMIN D3 400 UNIT TABLET PO SCH (10:29)
[2020-05-19] MEDS: CYANOCOBALAMIN (VITAMIN B-12) 1,000 MCG TABLET SL SCH (10:30)
[2020-05-19] MEDS ORDERED: REGADENOSON INJ 0.4 MG/5 ML DISP.SYRIN IV ONE (13:36)
--- NOTE | 2020-05-19 15:17 | PDOC DISCHARGE SUMMARY ---
Impression - Admit/DC Date/PCP Admission Date/Primary Care Provider: 05/18/20 10:15 MARINA ALVAREZ DO Discharge Date: 05/19/20 - Discharge Diagnosis (1) Non-ST elevation myocardial infarction (NSTEMI) Is this a current diagnosis for this admission?: Yes (2) Epigastric abdominal pain Is this a current diagnosis for this admission?: Yes (3) Hyponatremia Is this a current diagnosis for this admission?: Yes (4) Constipation Is this a current diagnosis for this admission?: Yes (5) Hypertensive emergency Is this a current diagnosis for this admission?: Yes (6) Raynaud's syndrome Is this a current diagnosis for this admission?: Yes (7) 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 Serial cardiac enzymes will be obtained. She will receive Ativan 1 mg IV every 4 hours as needed anxiety or restlessness. She will be initially treated with IV normal saline at 167 mL/h x 12 hours. CBCs, metabolic profiles and magnesium levels as well as other laboratory and/or radiographic evaluations will be obtained as appropriate. A thyroid profile will be obtained. Patient's medications will be reviewed for any agents which may be contributing to her chronic hyponatremia. She was placed on a cardiac diet. - Additional Information Resuscitation Status: Full Code Discharge Diet: Cardiac Discharge Activity: Activity As Tolerated Referrals: CHRISTOPHER WHITE MD [ACTIVE STAFF] - 05/25/20 12:30 pm MARINA ALVAREZ DO [Primary Care Provider] - 05/26/20 11:00 am Prescriptions: Diltiazem HCl [Diltiazem 12Hr ER] 120 mg PO BID #60 cap.er.12h Sodium Bicarbonate [Sodium Bicarbonate 650 mg Tablet] 650 mg PO [facility] #120 tablet Home Medications: Allopurinol [Zyloprim 100 mg Tablet] 100 mg PO Q12 06/18/19 Aspirin [Adult Low Dose Aspirin EC] 81 mg PO QAM 06/18/19 Calcium Carbonate/Vitamin D3 [Calcium 600 + Vit D Tablet] 2 each PO DAILY 06/18/19 Cyanocobalamin (Vitamin B-12) [B-12] 5,000 mcg SL DAILY 06/18/19 Docusate Sodium [Colace 100 mg Capsule] 100 mg PO BID 06/18/19 Enalapril Maleate [Vasotec 20 mg Tablet] 20 mg PO Q12 06/18/19 Esomeprazole Magnesium [Nexium] 20 mg PO Q2D 06/18/19 Eszopiclone [Lunesta] 1.5 mg PO HSP PRN 06/18/19 Folic Acid [Folvite 1 mg Tablet] 1 mg PO DAILY 06/18/19 Gabapentin [Neurontin 100 mg Capsule] 300 mg PO QHS 06/18/19 Inulin/Chromium Picolinate [Fiber Gummies] 1 ea PO DAILY 06/18/19 Meclizine HCl [Motion Relief] 25 mg PO DAILYP PRN 06/18/19 Simvastatin 20 mg PO QPM 06/18/19 Valacyclovir HCl [Valtrex 500 mg Tablet] 500 mg PO DAILY #7 tablet 06/20/19 Acetaminophen [Acetaminophen Extra Strength] 500 mg PO QAM 05/17/20 Ascorbate Calcium [Vitamin C] 500 mg PO DAILY 05/17/20 Clonidine HCl [Catapres 0.1 mg Tablet] 0.1 mg PO Q8HP PRN 05/17/20 Diclofenac Sodium 1 applic TOP ASDIR PRN 05/17/20 Hydrocortisone [Proctosol-Hc] 1 applic TOP ASDIR PRN 05/17/20 Levothyroxine Sodium [Synthroid 0.075 mg Tablet] 0.075 mg PO Q6AM 05/17/20 Methotrexate Sodium [Rheumatrex 2.5 mg Tablet] 15 mg PO TH@1000 05/17/20 Multivitamin [Chewable-Behzad] 1 tab PO DAILY 05/17/20 Polyethylene Glycol 3350 [Miralax Powder 17 gm/Packet] 1 packet PO HSP PRN 05/17/20 Prednisolone Acetate [Inflamase 1% Oph Susp 5 ml] 1 drop OD QAM 05/17/20 Wheat Dextrin [Benefiber] 1 packet PO BID 05/17/20 Diltiazem HCl [Diltiazem 12Hr ER] 120 mg PO BID #60 cap.er.12h 05/19/20 Sodium Bicarbonate [Sodium Bicarbonate 650 mg Tablet] [address] [facility] #120 tablet 05/19/20 History of Present Illiness History of Present Illness: JUAN ANTONIO JONES is a 79 year old female who presented to the emergency room with a 4-day history of generalized weakness. She admits progressively worsening generalized weakness accompanied by epigastric discomfort and constipation and associated with labile hypertension over the last 4 days. She denies other associated or accompanying signs and symptoms. 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 She admits to taking several doses of clonidine over the days prior to admission, because of severe labile hypertension. She has not identified any aggravating or ameliorating factors for her generalized weakness. In the emergency room she was found to have a serum sodium of 123.4 without other remarkable abnormalities. Emergency room physician was quite concerned that the patient had a history of seizures, coma and associated hyponatremia, although it was noted that her seizure in coma occurred with a serum sodium less than 117. It was decided to admit the patient to observation status for further evaluation and treatment. Hospital Course Hospital Course: (1) Non-ST elevation myocardial infarction (NSTEMI) Is this a current diagnosis for this admission?: Yes Plan: Troponins peaked at 0.24. Trending down. Dr. Chavis is seeing the patient as well. Stress test ordered for tomorrow (2) Epigastric abdominal pain Is this a current diagnosis for this admission?: Yes Plan: Continue PPI (3) Hyponatremia Is this a current diagnosis for this admission?: Yes Plan: Sodium is 130. Continue current regimen and continue to monitor. (4) Constipation Qualifiers: Constipation type: unspecified constipation type Qualified Code(s): K59.00 - Constipation, unspecified Is this a current diagnosis for this admission?: Yes Plan: The patient has a history of hemorrhoids. Will need to modify regimen. (5) Hypertensive emergency Is this a current diagnosis for this admission?: Yes Plan: Blood pressure still labile. Diltiazem initiated and Coreg discontinued for Raynaud's. Amlodipine discontinued. Lisinopril 20 mg twice daily. 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 (8) Rheumatoid arthritis Qualifiers: Rheumatoid arthritis location: multiple sites Rheumatoid factor presence: unspecified presence Qualified Code(s): M06.9 - Rheumatoid arthritis, unspecified Is this a current diagnosis for this admission?: Yes Plan: No changes at this time but encouraged to follow-up with encapsulator. Will check sed rate and CRP as well as rheumatoid factor. (9) Hypothyroidism Qualifiers: Hypothyroidism type: unspecified Qualified Code(s): E03.9 - Hypothyroidism, unspecified Is this a current diagnosis for this admission?: Yes Plan: Continue levothyroxine (10) Gout Qualifiers: Gout site: foot Encounter type: initial encounter Chronicity: chronic Presence of tophus: without tophus Is this a current diagnosis for this admission?: Yes Plan: Continue allopurinol Physical Exam Vital Signs: Temp Pulse Resp BP Pulse Ox 97.4 F 67 18 117/51 L 95 05/19/20 11:37 05/19/20 11:37 05/19/20 11:37 05/19/20 11:37 05/19/20 11:37 Intake & Output 05/18/20 05/19/20 05/20/20 06:59 06:59 06:59 Intake Total 2360 1728 Balance 2360 1728 Weight 71.4 kg General appearance: PRESENT: no acute distress Respiratory exam: PRESENT: clear to auscultation brian, symmetrical, unlabored. ABSENT: rales, rhonchi, tachypnea, wheezes Cardiovascular exam: PRESENT: RRR, +S1, +S2 GI/Abdominal exam: PRESENT: normal bowel sounds, soft. ABSENT: tenderness Results Laboratory Results: WBC 7.8 10^3/uL (4.0-10.5) 05/18/20 05:24 RBC 3.07 10^6/uL (3.72-5.28) L 05/18/20 05:24 Hgb 11.3 g/dL (12.0-15.5) L 05/18/20 05:24 Hct 32.7 % (36.0-47.0) L 05/18/20 05:24 MCV 106 fl (80-97) H 05/18/20 05:24 MCH 36.9 pg (27.0-33.4) H 05/18/20 05:24 MCHC 34.6 g/dL (32.0-36.0) 05/18/20 05:24 RDW 17.2 % (11.5-14.0) H 05/18/20 05:24 Plt Count 219 10^3/uL (150-450) 05/18/20 05:24 Lymph % (Auto) Cancelled 05/16/20 23:53 [place] % (Auto) Cancelled 05/16/20 23:53 Eos % (Auto) Cancelled 05/16/20 23:53 Baso % (Auto) Cancelled 05/16/20 23:53 Absolute Neuts (auto) Cancelled 05/16/20 23:53 Absolute Lymphs (auto) Cancelled 05/16/20 23:53 Absolute Monos (auto) Cancelled 05/16/20 23:53 Absolute Eos (auto) Cancelled 05/16/20 23:53 Absolute Basos (auto) Cancelled 05/16/20 23:53 Total Counted 100 05/16/20 22:53 Seg Neutrophils % Cancelled 05/16/20 23:53 Seg Neuts % (Manual) 54 % (42-78) 05/16/20 22:53 Lymphocytes % (Manual) 41 % (13-45) 05/16/20 22:53 Atypical Lymphs % 1 % (0) 05/16/20 22:53 Monocytes % (Manual) 4 % (3-13) 05/16/20 22:53 Eosinophils % (Manual) 0 % (0-6) 05/16/20 22:53 Basophils % (Manual) 0 % (0-2) 05/16/20 22:53 Abs Neuts (Manual) 6.6 10^3/uL (1.7-8.2) 05/16/20 22:53 Abs Lymphs (Manual) 5.1 10^3/uL (0.5-4.7) H 05/16/20 22:53 Abs Monocytes (Manual) 0.5 10^3/uL (0.1-1.4) 05/16/20 22:53 Absolute Eos (Manual) 0.0 10^3/uL (0.0-0.6) 05/16/20 22:53 Abs Basophils (Manual) 0.0 10^3/uL (0.0-0.2) 05/16/20 22:53 Toxic Granulation SLIGHT 05/16/20 22:53 Platelet Estimate Cancelled 05/16/20 23:53 Platelet Comment ADEQUATE 05/16/20 22:53 Anisocytosis 1+ 05/16/20 22:53 Macrocytosis 2+ 05/16/20 22:53 Tear Drop Cells SLIGHT 05/16/20 22:53 ESR 9 mm/hr (0-30) 05/19/20 05:32 Sodium 131.1 mmol/L (137-145) L 05/19/20 05:32 Potassium 4.5 mmol/L (3.6-5.0) 05/19/20 05:32 Chloride 100 mmol/L (98-107) 05/19/20 05:32 Carbon Dioxide 25 mmol/L (22-30) 05/19/20 05:32 Anion Gap 6 (5-19) 05/19/20 05:32 BUN 21 mg/dL (7-20) H 05/19/20 05:32 Creatinine 1.06 mg/dL (0.52-1.25) 05/19/20 05:32 Est GFR ( Amer) > 60 (>60) 05/19/20 05:32 Est GFR (Non-Af Amer) Cancelled 05/16/20 23:53 Est GFR (MDRD) Non-Af 50 (>60) L 05/19/20 05:32 Glucose 115 mg/dL (75-110) H 05/19/20 05:32 Calcium 9.4 mg/dL (8.4-10.2) 05/19/20 05:32 Magnesium 1.9 mg/dL (1.6-2.3) 05/18/20 05:24 Total Bilirubin Cancelled 05/16/20 23:53 Direct Bilirubin Cancelled 05/16/20 23:53 Neonat Total Bilirubin Cancelled 05/16/20 23:53 Neonat Direct Bilirubin Cancelled 05/16/20 23:53 Neonat Indirect Bili Cancelled 05/16/20 23:53 AST Cancelled 05/16/20 23:53 ALT Cancelled 05/16/20 23:53 Alkaline Phosphatase Cancelled 05/16/20 23:53 Creatine Kinase 93 U/L (30-135) 05/17/20 17:31 CK-MB (CK-2) 2.31 ng/mL (<4.55) 05/17/20 17:31 Troponin I 0.088 ng/mL 05/18/20 05:24 C-Reactive Protein < 5.0 mg/L (<10.0) 05/19/20 05:32 Total Protein Cancelled 05/16/20 23:53 Albumin Cancelled 05/16/20 23:53 Lipase Cancelled 05/16/20 23:53 EGFR Cancelled 05/16/20 23:53 TSH 4.00 uIU/mL (0.47-4.68) 05/18/20 05:24 Free T3 pg/mL 2.07 pg/mL (2.77-5.27) L 05/18/20 05:24 Urine Color STRAW 05/16/20 23:44 Urine Appearance CLEAR 05/16/20 23:44 Urine pH 8.0 (5.0-9.0) 05/16/20 23:44 Ur Specific Iva 1.006 05/16/20 23:44 Urine Protein NEGATIVE mg/dL (NEGATIVE) 05/16/20 23:44 Urine Glucose (UA) NEGATIVE mg/dL (NEGATIVE) 05/16/20 23:44 Urine Ketones NEGATIVE mg/dL (NEGATIVE) 05/16/20 23:44 Urine Blood SMALL (NEGATIVE) H 05/16/20 23:44 Urine Nitrite NEGATIVE (NEGATIVE) 05/16/20 23:44 Urine Bilirubin NEGATIVE (NEGATIVE) 05/16/20 23:44 Urine Urobilinogen NEGATIVE mg/dL (<2.0) 05/16/20 23:44 Ur Leukocyte Esterase MODERATE (NEGATIVE) H 05/16/20 23:44 Urine WBC (Auto) 4 /HPF 05/16/20 23:44 Urine RBC (Auto) 1 /HPF 05/16/20 23:44 Squamous Epi Cells Auto 1 /HPF 05/16/20 23:44 Urine Mucus (Auto) RARE /LPF 05/16/20 23:44 Urine Ascorbic Acid NEGATIVE (NEGATIVE) 05/16/20 23:44 Rheumatoid Factor < 8.6 IU/mL (<12.0) 05/18/20 05:24 Slides for Path Review Cancelled 05/16/20 23:53 05/16/20 05/17/20 05/17/20 23:53 08:59 11:06 CK-MB (CK-2) 2.88 2.58 Troponin I < 0.012 0.246 0.203 05/17/20 05/18/20 17:31 05:24 CK-MB (CK-2) 2.31 Troponin I 0.153 0.088 Impressions: Abdomen/Pelvis CT 05/17/20 00:51 IMPRESSION: No acute intra-abdominal/pelvic process. Colonic diverticulosis without CT evidence for diverticulitis. TECHNICAL DOCUMENTATION: Quality ID # 436: Final reports with documentation of one or more dose reduction techniques (e.g., Automated exposure control, adjustment of the mA and/or kV according to patient size, use of iterative reconstruction technique) copyright 2011 [employer]- All Rights Reserved Chest X-Ray 05/17/20 00:54 IMPRESSION: No acute cardiopulmonary process copyright 2010 [employer]- All Rights Reserved Plan Health Concerns: Multiple comorbidities Plan of Treatment: See medication changes above Goals: For coordination of care Time Spent: Greater than 30 Minutes Stroke Is this a Stroke Patient?: No Acute Heart Failure - Is this a Heart Failure Patient?: No
--- NOTE | 2020-05-19 15:31 | Progress Note ---
Provider Note Provider Note: CARDIOLOGY PROGRESS NOTE by Dr. Angelique Helm on 05/19/2020 SUBJECTIVE: The patient has no further chest pain or discomfort. There is no shortness of breath. There is no PND orthopnea palpitations. There is no sustained near-syncope or syncope. The patient underwent IV Lexiscan Cardiolite stress test today which was uneventful. Please see results below. PHYSICAL EXAMINATION: The patient is well-built. She is well-nourished in no acute distress. Selected Entries 05/19/20 05/19/20 05/19/20 11:37 13:08 16:16 Temperature 97.4 F Pulse Rate 70 Respiratory 18 Rate Blood Pressure 153/65 H [Right Upper Arm] O2 Sat by Pulse 95 Oximetry Fraction of 21 Inspired Oxygen (FIO2) Oxygen Delivery Room Air Method HEAD: Atraumatic, normocephalic. EYES: Pupils equal round and reactive to light, extraocular movements intact, sclera anicteric, conjunctiva are normal. ENT: TMs normal, nares patent, oropharynx clear without exudates. Moist mucous membranes. NECK: Normal range of motion, supple without lymphadenopathy or JVD. Carotids are equal there is no bruits. There is no thyromegaly. There is no accessory muscles of respiration in use. Trachea central LUNGS: Breath sounds clear to auscultation bilaterally and equal. No wheezes rales or rhonchi. On palpation there is no chest wall tenderness. HEART: S1-S2 is heard. S1 is of normal intensity. There is no S3 gallop. There is no S4 gallop. There is systolic murmur left sternal border and apex without radiation. There is no rub.. ABDOMEN: Soft, nontender, normoactive bowel sounds. There is no hepatosplenic megaly no guarding, no rebound. No masses appreciated. EXTREMITIES: Normal range of motion, no pitting or edema. No clubbing or cyanosis. Femorals are well felt. There is no femoral bruits. Leg pulses are well felt. There is no DVT or cellulitis. There is no calf tenderness NEUROLOGICAL: Cranial nerves II through XII grossly intact. Normal speech, normal gait. The patient is awake alert oriented x3 with no focal deficits. PSYCH: Normal mood, normal affect. The patient judgment and insight are intact SKIN: Warm, Dry, normal turgor, no rashes or lesions noted. There is no petechia or ecchymosis, IV LEXISCAN CARDIOLITE NUCLEAR STRESS TEST: This showed no reversible ischemia or myocardial infraction. This was discussed with the patient. Labs- All tests 24 hr 05/19/20 05/19/20 05/19/20 05:32 05:32 05:32 ESR 9 Sodium 131.1 L Potassium 4.5 Chloride 100 Carbon Dioxide 25 Anion Gap 6 BUN 21 H Creatinine 1.06 Est GFR ( Amer) > 60 Est GFR (MDRD) Non-Af 50 L Glucose 115 H Calcium 9.4 C-Reactive Protein < 5.0 Abdomen/Pelvis CT 05/17/20 00:51 IMPRESSION: No acute intra-abdominal/pelvic process. Colonic diverticulosis without CT evidence for diverticulitis. TECHNICAL DOCUMENTATION: Quality ID # 436: Final reports with documentation of one or more dose reduction techniques (e.g., Automated exposure control, adjustment of the mA and/or kV according to patient size, use of iterative reconstruction technique) copyright 2011 [employer]- All Rights Reserved Chest X-Ray 05/17/20 00:54 IMPRESSION: No acute cardiopulmonary process copyright 2010 [employer]- All Rights Reserved Impression/RECOMMENDATION: 1. Non-ST elevation OK: This probably is a small and most likely secondary to coronary disease vasospasm. Note that the troponin is trended down. The patient's echocardiogram showed no wall motion. Abnormality. Her IV Lexiscan Cardiolite stress test done today shows no ischemia or OK. Would recommend a 30-day event monitor as an outpatient to make sure the patient does not have ST segment shifts when she has chest pain consistent with coronary vasospasm. 2. Raynaud's phenomena: By history. Strongly recommend stopping the patient's Coreg and is switching the patient to a calcium channel nancy. 3. Rheumatoid arthritis: This seems to be in remission without any acute flareup since the CRP is less than 5. 4. Hypertension: Continue antihypertensives. 5. Hypothyroidism: Continue thyroid replacement. 7. Hyponatremia:? SIADH. The patient in the past has had a bad reaction to desmopressin and had seizures secondary to hyponatremia. 8. GERD: Continue proton pump inhibitors. 9. Probable mild chronic kidney disease. The patient is findings on the stress test have been discussed with the patient and with the attending provider. Medical regimen and management plan discussed with the attending provider on the case. Medical decision making is a moderate complexity. 40 minutes spent as patient more than 50% of time spent in direct patient care. Cardiac status stable. The patient has an appointment to see me on the coming which is May 25, 2020 at 12:30 PM. This appointment has been written down for the patient. The patient also has my cell phone number and she will contact me if she has any problems. Will sign off.
[2020-05-19 16:17] VITALS: BP 153/65
[2020-05-19] MEDS ORDERED: POLYETHYLENE GLYCOL 3350 POWDER 17 GM/1 PACKET PO SCH (22:00)
--- NOTE | 2020-05-21 01:15 | DRAGON STRESS TEST REPORT ---
Intravenous Lexiscan Cardiolite stress test using single photon emmision computerized tomography. Date of procedure: 05/19/2020. Ordering Provider: Dr. Angelique Helm.Patient's status: Inpatient. Indication: Chest pain and non-ST elevation HI.. Coronary risk factors: Age, hypertension, and dyslipidemia. Resting EKG: Sinus Rhythm. Poor R wave leads V1 to V6 Stress EKG: No changes of ischemia. The patient had no chest pain or discomfort. There was no arrhythmias seen. Reason for termination: Protocol. Conclusions: Normal EKG and hemodynamic response to IV Lexiscan. Nuclear data: At rest the patient was given 10.87 millicuries of technetium 99m sestamibi injected intravenously. As per protocol rest non gated SPECT images were obtained. Subsequently the patient was given intravenous Lexiscan at a dose of 0.4 mg in 5 mL intravenously, followed by flush with normal saline. Subsequently the stress dose of 30.8 millicuries of technetium 99m sestamibi was injected intravenously. As per protocol stress gated images were obtained. Nuclear interpretation: Review of images showed that all segments of the myocardium had normal perfusion at rest, and normal perfusion post stress with IV Lexiscan. All segments of the myocardium had normal motion, contraction, and thickening by gated study. T. I D. ratio was read as 1.21. Visually this is not reliable and visually T I D ratio was normal.. There is no transient ischemic dilatation of the left ventricle. Computer read rest, and stress left ventricular ejection fraction were 76 %, and 67 %, respectively. Conclusion: 1. There is no scintigraphic evidence of Lexiscan induced myocardial ischemia. 2. There is no scintigraphic evidence of myocardial infarction/scar. Recommendations: Aggressive risk factor modification, and treating the underlying co- morbidities. MTDD
== END 2020-05-19 16:30 | disposition home or self-care (01) | DRG 281 ==
LOC: ER 22:42 → EH 05-17 02:47 → 4W 05-17 03:40 → OBSVTOIN 05-17 12:27 → INTOOBSV 05-17 12:27 → OBSVTOIN 05-18 10:15 → 4W 05-19 08:11
PROVIDERS: ADMIT Emergency Medicine; ATTEND Hospitalist
DX: I21.4 Non-ST elevation (NSTEMI) myocardial infarction (principal); E87.1 Hypo-osmolality and hyponatremia; I16.1 Hypertensive emergency; N18.3 Chronic kidney disease, stage 3 (moderate); R10.13 Epigastric pain; K59.00 Constipation, unspecified; I73.00 Raynaud's syndrome without gangrene; B00.1 Herpesviral vesicular dermatitis; M06.9 Rheumatoid arthritis, unspecified; E03.9 Hypothyroidism, unspecified; M10.9 Gout, unspecified; E78.5 Hyperlipidemia, unspecified; I12.9 Hypertensive chronic kidney disease with stage 1 through stage 4 chronic kidney disease, or unspecified chronic kidney disease; K21.9 Gastro-esophageal reflux disease without esophagitis; Z79.82 Long term (current) use of aspirin; Z79.899 Other long term (current) drug therapy; Z87.891 Personal history of nicotine dependence; Z82.49 Family history of ischemic heart disease and other diseases of the circulatory system; Z79.52 Long term (current) use of systemic steroids; Z91.011 Allergy to milk products
CPT/HCPCS: 36415; 71045; 74176; 78452; 80048; 80053; 81001; 82550; 82553; 83690; 83735; 84443; 84481; 84484; 85025; 85027; 85652; 86140; 86431; 93005; 93010; 93017; 93306; 96360; 96361; 99285; A9500; G0378; J1644; J2785; J3490; J7030; J7512; J8610; Q9969